=== PATIENT | female | born 1965 | race Caucasian/White ===

== ENCOUNTER 2016-05-17 14:04 | Emergency (ER) | payer MEDICARE ==
[2016-05-17] MEDS ORDERED: ONDANSETRON 4 MG TAB.RAPDIS PO ONE (14:09)
--- NOTE | 2016-05-17 14:11 | ER Document Report ---
ED Medical Screen (RME) - General Stated Complaint: HEADACHE,NAUSEA,VOMITING Mode of Arrival: Ambulatory Information source: Patient Notes: Patient complains of migraine headache. Patient reports right-sided headache pain that started 4 days ago. Patient does report nausea and vomiting. No head injury. No fever. Patient reports, Vicodin and muscle relaxer without relief her symptoms. hx: Lupus, fibromyalgia, migraines I have greeted and performed a rapid initial assessment of this patient. A comprehensive ED assessment and evaluation of the patient, analysis of test results and completion of the medical decision making process will be conducted by additional ED providers. TRAVEL OUTSIDE OF THE [place] IN LAST 30 DAYS: No - Related Data Allergies/Adverse Reactions: diphenhydramine HCl [From Benadryl] Allergy (Severe, Verified 01/25/16 11:48) HEART RACING, RESTLESS LEG metoclopramide HCl [From Reglan] Allergy (Severe, Verified 01/25/16 11:48) HEART RACING, RESTLESS LEG prochlorperazine maleate [From Compazine] Allergy (Severe, Verified 01/25/16 11: 48) HEART RACING, RESTLESS LEG promethazine HCl [From Phenergan] Allergy (Severe, Verified 01/25/16 11:48) HEART RACING RESTLESS LEG Sulfa (Sulfonamide Antibiotics) Allergy (Severe, Verified 01/25/16 11:48) Anaphylaxis doxycycline [Doxycycline] Allergy (Mild, Verified 01/25/16 11:48) upset stomach latex [Latex] Allergy (Mild, Verified 01/25/16 11:48) Pruritis oxycodone HCl [From Percocet] Allergy (Mild, Verified 01/25/16 11:48) upset stomach Past Medical History - Past Medical History Cardiac Medical History: Denies: Hx Heart Attack, Hx Hypertension Pulmonary Medical History: Reports: Hx Bronchitis, Hx Pneumonia Denies: Hx Asthma, Hx COPD Neurological Medical History: Reports: Hx Migraine. Denies: Hx Cerebrovascular Accident, Hx Seizures Malignancy Medical History: Reports: Hx Skin Cancer GI Medical History: Reports: Hx Gastroesophageal Reflux Disease Musculoskeltal Medical History: Reports Hx Arthritis, Reports Hx Fibromyalgia Psychiatric Medical History: Reports: Hx Depression Infectious Medical History: Reports: Hx MRSA Past Surgical History: Reports: Hx Gynecologic Surgery - ablation, Hx Oral Surgery, Hx Orthopedic Surgery - right knee, Hx Tonsillectomy. Denies: Hx Hysterectomy - Immunizations Hx Diphtheria, Pertussis, Tetanus Vaccination: No Physical Exam - Neurological Cognition: Normal [place]yla Coma Scale Eye Opening: Spontaneous [place] Coma Scale Verbal: Oriented Leyla Coma Scale Motor: Obeys Commands Leyla Coma Scale Total: 15
[2016-05-17] MEDS ORDERED: ONDANSETRON HCL 8 MG TABLET PO ONE (14:12)
[2016-05-17 15:01] LABS: PROTHROMBIN TIME 21.7 SEC (11.4-15.4)
[2016-05-17] MEDS ORDERED: NORMAL SALINE 1000 ML 1,000 ML IV ONE (17:48)
[2016-05-17] MEDS ORDERED: KETOROLAC TROMETHAMINE INJ/PF 30 MG/1 ML SDV IV ONE (17:48)
[2016-05-17] MEDS ORDERED: HYDROMORPHONE HCL INJ/PF 2 MG/ML AMPULE IV ONE (17:49)
--- NOTE | 2016-05-17 17:59 | ER Document Report ---
ED Headache - General Chief Complaint: Headache Stated Complaint: HEADACHE,NAUSEA,VOMITING Mode of Arrival: Ambulatory Information source: Patient Notes: This is a 51-year-old female who has a history of migraines lupus and fibromyalgia who presents with a migraine headache. She states that this headache began 4 days ago. The headache is right-sided and throbbing. The headache began just like her typical migraines began. She has been trying medication at home to include Maxalt Vicodin and muscle relaxers but the pain has persisted and intensified today. This was not a thunderclap sudden onset headache. She has had no neck pain or rigidity and no fevers or chills. She has had some nausea and vomited one time yesterday but has not thrown up today. She was last seen in this ER about 7 months ago for a migraine at that time her head CT was negative. She tells me that this migraine is very similar in nature to her previous migraine headaches. TRAVEL OUTSIDE OF THE [place] IN LAST 30 DAYS: No - Related Data Allergies/Adverse Reactions: diphenhydramine HCl [From Benadryl] Allergy (Severe, Verified 01/25/16 11:48) HEART RACING, RESTLESS LEG metoclopramide HCl [From Reglan] Allergy (Severe, Verified 01/25/16 11:48) HEART RACING, RESTLESS LEG prochlorperazine maleate [From Compazine] Allergy (Severe, Verified 01/25/16 11: 48) HEART RACING, RESTLESS LEG promethazine HCl [From Phenergan] Allergy (Severe, Verified 01/25/16 11:48) HEART RACING RESTLESS LEG Sulfa (Sulfonamide Antibiotics) Allergy (Severe, Verified 01/25/16 11:48) Anaphylaxis doxycycline [Doxycycline] Allergy (Mild, Verified 01/25/16 11:48) upset stomach latex [Latex] Allergy (Mild, Verified 01/25/16 11:48) Pruritis oxycodone HCl [From Percocet] Allergy (Mild, Verified 01/25/16 11:48) upset stomach Past Medical History - General Information source: Patient - Social History Smoking Status: Never Smoker Chew tobacco use (# tins/day): No Frequency of alcohol use: None Drug Abuse: None Family History: Arthritis, CAD, Hyperlipidemia, Hypertension, Malignancy. denies: None, Reviewed & Not Pertinent, COPD, CVA, DM, Thyroid Disfunction, Other Patient has suicidal ideation: No Patient has homicidal ideation: No - Past Medical History Cardiac Medical History: Denies: Hx Heart Attack, Hx Hypertension Pulmonary Medical History: Reports: Hx Bronchitis, Hx Pneumonia Denies: Hx Asthma, Hx COPD Neurological Medical History: Reports: Hx Migraine. Denies: Hx Cerebrovascular Accident, Hx Seizures Endocrine Medical History: Reports: Other - fibromyalgia, SLE Renal/ Medical History: Denies: Hx Peritoneal Dialysis Malignancy Medical History: Reports: Hx Skin Cancer GI Medical History: Reports: Hx Gastroesophageal Reflux Disease Musculoskeltal Medical History: Reports Hx Arthritis, Reports Hx Fibromyalgia Psychiatric Medical History: Reports: Hx Depression Infectious Medical History: Reports: Hx MRSA Past Surgical History: Reports: Hx Gynecologic Surgery - ablation, Hx Oral Surgery, Hx Orthopedic Surgery - right knee, Hx Tonsillectomy. Denies: Hx Hysterectomy - Immunizations Hx Diphtheria, Pertussis, Tetanus Vaccination: No Hx Pneumococcal Vaccination: 04/11/10 Review of Systems - Review of Systems Notes: REVIEW OF SYSTEMS: CONSTITUTIONAL : Denies fever, chills, or sweats. Denies recent illness. EENT: Denies eye, ear, throat, or mouth pain or symptoms. Denies nasal or sinus congestion. CARDIOVASCULAR: Denies chest pain. RESPIRATORY: Denies cough, cold, or chest congestion. Denies shortness of breath, difficulty breathing, or wheezing. GASTROINTESTINAL: Denies abdominal pain. Nausea vomiting as per history of present illness GENITOURINARY: Denies difficulty urinating, painful urination, burning, frequency, or blood in urine. MUSCULOSKELETAL: Denies neck or back pain or joint pain or swelling. SKIN: Denies rash or skin lesions. HEMATOLOGIC : Denies easy bruising or bleeding. LYMPHATIC: Denies swollen, enlarged glands. NEUROLOGICAL: As per history of present illness. She denies paresthesias, weakness, imbalance, vision disturbance. PSYCHIATRIC: Denies anxiety or stress or depression. ALL OTHER SYSTEMS REVIEWED AND NEGATIVE. Physical Exam - Vital signs Vitals: Temp Pulse Resp BP Pulse Ox 97.7 F 74 20 107/53 L 100 05/17/16 14:09 05/17/16 14:09 05/17/16 14:09 05/17/16 14:09 05/17/16 14:09 - Notes Notes: PHYSICAL EXAMINATION: GENERAL: Well-appearing, well-nourished and in no acute distress. She does have sunglasses on and appears mildly uncomfortable secondary to headache. She is pleasant and conversant. HEAD: Atraumatic, normocephalic. EYES: Pupils equal round and reactive to light, extraocular movements intact, sclera anicteric, conjunctiva are normal. ENT: nares patent, oropharynx clear without exudates. Moist mucous membranes. NECK: Normal range of motion, supple without lymphadenopathy LUNGS: Breath sounds clear to auscultation bilaterally and equal. No wheezes rales or rhonchi. HEART: Regular rate and rhythm without murmurs ABDOMEN: Soft, nontender, normoactive bowel sounds. No guarding, no rebound. No masses appreciated. EXTREMITIES: Normal range of motion, no pitting or edema. No cyanosis. NEUROLOGICAL: Cranial nerves grossly intact. Normal speech. Normal sensory, motor, and reflex exams. PSYCH: Normal mood, normal affect. SKIN: Warm, Dry, normal turgor, no rashes or lesions noted. Course - Re-evaluation Re-evalutation: 05/17/16 17:55 This patient has a presentation that is very typical of her previous migraines. She did have a CT within the year which was negative. At this time I do not feel her symptoms are consistent with [employer] infection or subarachnoid hemorrhage or [employer] mass lesion. At this time we will defer repeat head CT and treat with IV fluids and IV migraine medication. Unfortunately she is allergic to many medications such as Benadryl, Reglan, Compazine. 05/17/16 19:59 Patient states she has had relief with the IM medications. Her pain is down to a 3. She is still uncomfortable with pain but is to a point where she could rest in her own bed in a dark room. She is agreeable with discharge home her neurologic exam remains normal. She will follow up with her primary care physician and in the interim she will return to the emergency department should she develop any worsening symptoms such as fevers, neck pain, uncontrolled vomiting, weakness or numbness, or any worsening symptoms or concerns. This plan was discussed with her friend who brought her here to the emergency department as well and she assures me that the patient will have someone with her and will be able to return for any worsening symptoms if needed. - Vital Signs Vital signs: Temp Pulse Resp BP Pulse Ox 97.7 F 74 20 107/53 L 100 05/17/16 14:09 05/17/16 14:09 05/17/16 14:09 05/17/16 14:09 05/17/16 14:09 - Laboratory Laboratory results interpreted by me: 05/17/16 14:20 PT 21.7 H Discharge - Discharge Clinical Impression: Migraine headache Qualifiers: Migraine type: unspecified Status migrainosus presence: without status migrainosus Intractability: not intractable Qualified Code(s): G43.909 - Migraine, unspecified, not intractable, without status migrainosus Condition: Stable Disposition: HOME, SELF-CARE Additional Instructions: Migraine Headache The physician feels that your symptoms are due to a migraine attack. Migraines are caused by changes in the blood vessels of the head. Arteries go into spasm, often causing warning symptoms that a headache may begin soon. As the spasm goes away, the vessels dilate and throb, causing the pounding pain of a migraine headache. Migraines often cause nausea and vomiting. The treatment of headaches varies with severity and cause of pain. Not all headaches need pain shots -- in fact, there is evidence that using narcotics for headaches may make them worse in the long run. The physician will determine the therapy that's in your best interest for this particular headache. Medications are available that may prevent migraines, or stop them as they first occur. If one medication is not helpful, try another. If migraines are frequent, be patient -- follow the doctor's recommendations. Call the physician if you are worsening, or if new symptoms arise. HEADACHE: The physician does not feel that the headache you are experiencing has a serious underlying cause. Most headaches are due to emotional stress, with resultant muscle tension (tension headache). Occasionally, headaches are secondary to changes in the blood vessels of the scalp (vascular headache and migraine headache). Sometimes, a headache is the first symptom of another developing illness, such as a viral infection. You have no evidence of stroke, bleeding, meningitis, or other serious cause of your headache. The treatment of headaches varies with the severity and cause of the pain. Not all headaches need pain shots. In fact, there is evidence that using narcotics for headaches may make them worse in the long run. The physician will determine the therapy that's in your best interest. If you develop a fever, if the headache is different from any you've previously experienced, or if the headache progressively worsens, then call your physician at once or go to the emergency room. [place] MEDICATION: You have been given a medication to suppress nausea and vomiting. This type of medication can be given as a shot, pill, or suppository. It will usually last for many hours. Pills and shots usually last six to eight hours, suppositories last about 12 hours. For the typical illness, only one or two doses of the medication may be necessary. Mild lightheadedness may occur. This type of medicine can cause drowsiness. Do not drive or operate dangerous machinery while under its influence. Do not mix with alcohol. See your doctor at once if you have muscle spasms or tightness, or uncontrollable motions (particularly of the neck, mouth, or jaw). Persistent vomiting or severe lightheadedness should also be evaluated by the physician. TORADOL INJECTION: You have been given an injection of ketorolac tromethamine (Toradol). This is an excellent, safe drug for pain control. It also has potent antiinflammatory action. You should have significant pain relief within about one hour. Toradol is not addicting and is non-sedating. It does not interfere with driving or work. Call or return if you develop itching, hives, shortness of breath, or rash. PAIN MEDICATION INJECTION: You have received an injection of a pain medication. You should experience significant pain relief within 45 minutes. This drug is a narcotic - - it will impair your judgement, slow your reaction time and make you sleepy ( as well as relieve your pain). Narcotics also can cause nausea. You should not drive, work with machinery, or perform any task requiring mental alertness until all effects of the medication are gone -- six to eight hours. Do not take any alcohol, or sedatives, and do not take any other medication without checking with your physician. FOLLOW-UP CARE: If you have been referred to a physician for follow-up care, call the physician s office for an appointment as you were instructed or within the next two days. If you experience worsening or a significant change in your symptoms, notify the physician immediately or return to the Emergency Department at any time for re-evaluation.
[2016-05-17] MEDS ORDERED: HYDROMORPHONE HCL INJ/PF 2 MG/ML AMPULE IM ONE (18:33)
[2016-05-17] MEDS ORDERED: KETOROLAC TROMETHAMINE 60 MG/2 ML SDV IM ONE (18:33)
[2016-05-17] MEDS ORDERED: CYCLOBENZAPRINE HCL 10 MG TABLET PO ONE (19:54)
[2016-05-17 20:49] VITALS: BP 108/51
== END 2016-05-17 20:40 | disposition home or self-care (01) ==
LOC: ER 14:04
DX: G43.909 Migraine, unspecified, not intractable, without status migrainosus (principal); M32.9 Systemic lupus erythematosus, unspecified; Z88.8 Allergy status to other drugs, medicaments and biological substances; Z91.040 Latex allergy status; Z88.5 Allergy status to narcotic agent; Z88.1 Allergy status to other antibiotic agents; Z87.892 Personal history of anaphylaxis; Z88.2 Allergy status to sulfonamides; Z86.14 Personal history of Methicillin resistant Staphylococcus aureus infection; Z85.828 Personal history of other malignant neoplasm of skin
CPT/HCPCS: 99284; 96372; 36415; 85610; A9270 ×2; J1885; J1170; S0119

== ENCOUNTER → 2016-06-23 | Outpatient (CLI) | payer MEDICARE, OTHER | LOC: SP 16:05 | PROVIDERS: ATTEND Internal Medicine Medical Oncology | DX: M79.662 Pain in left lower leg (principal) | CPT/HCPCS: 93971 ==

== ENCOUNTER → 2016-07-15 | Outpatient (CLI) | payer MEDICARE | LOC: SP 10:08 | PROVIDERS: ATTEND Internal Medicine Medical Oncology | DX: M79.605 Pain in left leg (principal) | CPT/HCPCS: 93971 ==

== ENCOUNTER → 2017-01-18 | Outpatient (CLI) | payer MEDICARE ==
--- NOTE | 2017-01-18 19:07 | WOMENS IMAGING REPORT ---
EXAM DESCRIPTION: 3D SCREENING MAMMO BILAT COMPLETED DATE/TIME: 01/18/2017 8:29 am REASON FOR STUDY: ROUTINE SCREENING; Z12.31 Z12.31 ENCNTR SCREEN MAMMOGRAM FOR MALIGNANT NEOPLASM O F MONSERRAT COMPARISON: Multiple since 2010 TECHNIQUE: Standard craniocaudal and mediolateral oblique views of each breast recorded using digita l acquisition and breast tomosynthesis. LIMITATIONS: None. FINDINGS: Findings present which are benign by mammographic criteria. No suspicious masses, calcifi cations or architectural distortion. Pertinent benign findings: Stable bilateral breast and skin calcifications Read with the assistance of CAD. .[facility] - R2 Cenova Version 1.3 .[facility] - R2 Cenova Version 1.3 .[facility] - R2 Cenova Version 2.4 .[facility] [place] - R2 Cenova Version 2.4 .[facility] - R2 Manager Pulmonary Version 9.2 Benign mammographic findings may include one or more of the following: Smooth masses, popcorn/rim/co arse calcifications, asymmetries, post-procedure changes, and lesions with long-standing stability. IMPRESSION: BENIGN MAMMOGRAPHIC FINDINGS. BIRADS 2 BREAST DENSITY: d. The breasts are extremely dense, which lowers the sensitivity of mammography. BIRAD: 2 BENIGN FINDING(S) RECOMMENDATION: RECOMMENDATION: ROUTINE SCREENING Please continue yearly bilateral screening tomosynthesis in January 2018 COMMENT: The patient has been notified of the results by letter per [place] requirements. Additional no tification policies are in place for contacting patient with suspicious or incomplete findings. Quality ID #[id number]: The [employer] recommends an annual screening mammogram for women aged 40 years or over. This facility utilizes a reminder system to ensure that all patients receive reminder letters, and/or direct phone calls for appointments. This includes reminders for routine scr eening mammograms, diagnostic mammograms, or other Breast Imaging Interventions when appropriate. Th is patient will be placed in the appropriate reminder system. The [employer] (ACR) has developed recommendations for screening MRI of the breast s in certain patient populations, to be used in conjunction with mammography. Breast MRI surveillanc e may be appropriate for women with more than 20% lifetime risk of developing breast cancer as deter mined by genetic testing, significant family history of the disease, or history of mantle radiation f or Hodgkins Disease. ACR Practice Guidelines 2008. DBT Technology DBT is a type of tomographic mammography. With conventional mammography, overlapping breast tissue ma y make lesions difficult to detect, even with good compression. DBT uses an x-ray tube that rotates a round the breast, taking images at different angles. These images are then combined to create thin sl ices of the breast that the radiologist can view as a 3D reconstruction. The [employer] unit can perform full-field digital mammograms (2D imaging); or DBT (3D imaging); or both, in a combination mode that quickly performs both the mammogram and the tomosynthesis scan while the breast is still compressed. PQRS 6045F: Fluoroscopic imaging is not utilized for breast tomosynthesis. TECHNICAL DOCUMENTATION: FINDING NUMBER: (1) ASSESSMENT: (1) JOB ID: [id number] [employer]- All Rights Reserved
== END ==
LOC: WI 08:07
PROVIDERS: ATTEND Physician Assistant
DX: Z12.31 Encounter for screening mammogram for malignant neoplasm of breast (principal)
CPT/HCPCS: 77063; G0202; 77067

== ENCOUNTER 2017-02-25 08:18 | Day surgery (SDC) | payer MEDICARE ==
[~2017-02-25 08:18] MED LIST: LACTATED RINGERS 1000 ML IV PRN; LIDOCAINE 0.5% INJ-PF (5 MG/ML) 50 ML SDV SUBCUT PRN
[2017-02-25 08:57] LABS: PARTIAL THROMBOPLASTIN TIME 60.1 SEC (23.5-35.8)
[2017-02-25] MEDS ORDERED: MIDAZOLAM 2 MG/2 ML INJ ONE (10:43)
[2017-02-25] MEDS ORDERED: PROPOFOL INJ 200 MG/20 ML VIAL IV ONE (10:44)
[2017-02-25] MEDS ORDERED: FENTANYL CITRATE INJ/PF 100 MCG/2 ML AMPUL IV PRN ×2 (11:08)
--- NOTE | 2017-02-25 12:29 | Operative Report ---
Operative Report DATE OF SURGERY: 02/25/17 Operative Report: The risks, benefits and alternatives of the procedure including risks of bleeding, perforation requiring surgery are explained to the patient in detail and informed consent was obtained. Patient was taken back to the operating room and placed in the left, lateral decubital position. Timeout was called. Propofol medications administered. A rectal examination is done which did not reveal any masses, tears or fissures. An Olympus videoscope was inserted into the patient's rectum. The scope was then carefully advanced all the way to the cecum. Cecum was identified by the usual anatomical landmarks including the ileocecal valve as well as the appendiceal office. Photodocumentation was obtained. Patient has a very redundant colon with unusual anatomy around the area of the splenic flexure. Prep is good. The scope was then sequentially pulled back out via the various segments of the colon including the ascending colon, hepatic flexure, transverse colon, splenic flexure, descending colon finding to the rectosigmoid portions of the colon. Retroflexion maneuvers performed. PREOPERATIVE DIAGNOSIS: Change in bowel habits POSTOPERATIVE DIAGNOSIS: Normal screening colonoscopy, internal hemorrhoids OPERATION: Diagnostic colonoscopy SURGEON: DULCE SALAS ANESTHESIA: LMAC TISSUE REMOVED OR ALTERED: None. COMPLICATIONS: None. ESTIMATED BLOOD LOSS: None. INTRAOPERATIVE FINDINGS: As noted above. PROCEDURE: Patient tolerated procedure well. No immediate postprocedure complications are noted. Patient discharged in good condition. Discharge date 02/25/2017. Discharge diet: Regular. Discharge activity: Regular. 2-3 week follow-up to discuss findings. Patient is instructed to call the office or proceed to the emergency room should there be any further problems or questions. Surveillance colonoscopy in 5 years
[2017-02-25 13:43] VITALS: BP 114/66
== END 2017-02-25 13:20 | disposition home or self-care (01) ==
LOC: END 08:18
PROVIDERS: ATTEND Internal Medicine Gastroenterology
PROC: 0DJD8ZZ Inspection of Lower Intestinal Tract, Via Natural or Artificial Opening Endoscopic (ICD-10-PCS; principal; 2017-02-25 10:00)
DX: K64.8 Other hemorrhoids (principal); R19.4 Change in bowel habit; M79.7 Fibromyalgia; M32.9 Systemic lupus erythematosus, unspecified; D68.61 Antiphospholipid syndrome; Z91.040 Latex allergy status; Z79.01 Long term (current) use of anticoagulants; Z88.2 Allergy status to sulfonamides; Z85.828 Personal history of other malignant neoplasm of skin
CPT/HCPCS: 45378; 36415; 84703; 85610; 85730; J2250; J2704; 810

== ENCOUNTER 2017-09-27 15:53 | Emergency (ER) | payer MEDICARE ==
[2017-09-27] MEDS ORDERED: ONDANSETRON HCL INJ/PF 4 MG/2 ML SDV IV ONE (19:51)
[2017-09-27] MEDS ORDERED: NORMAL SALINE 500 ML IV ONE (19:52)
[2017-09-27] MEDS ORDERED: ONDANSETRON 4 MG TAB.RAPDIS PO ONE (19:54)
[2017-09-27] MEDS ORDERED: FENTANYL CITRATE INJ/PF 100 MCG/2 ML AMPUL IV ONE (19:59)
[2017-09-27] MEDS ORDERED: HALOPERIDOL LACTATE INJ 5 MG/1 ML VIAL IV ONE (20:03)
--- NOTE | 2017-09-27 20:06 | ER Document Report ---
ED General - General Chief Complaint: Headache Stated Complaint: HEADACHE,VOMITING,FACIAL PAIN Time Seen by Provider: 09/27/17 19:48 TRAVEL OUTSIDE OF THE [place] IN LAST 30 DAYS: No - HPI Notes: Patient is a 52-year-old female with a history of lupus, fiber myalgia, and chronic migraines who presents to the ED complaining of another migraine exacerbation 2 days. Patient states that her home medicines have not been working for her very well which brought her to the emergency department. Patient states that she has associated light sensitivity, left-sided headache, nausea and vomiting. Patient states that her symptoms are very typical of previous migraines and has no new developments with this headache. Pain does not radiate. Patient has not been able to eat or drink due to the nausea and vomiting. She is still urinating and having normal bowel movements otherwise. No other recent illness or injury. Denies any fever, head injury, neck pain, changes in vision/speech/mentation/hearing, URI, sore throat, chest pain, palpitations, syncope, cough, shortness of breath, wheeze, dyspnea, abdominal pain, nausea/vomiting/diarrhea, urinary retention, dysuria, hematuria, loss of control of bowel or bladder, numbness/tingling, saddle anesthesia, muscle paralysis/weakness, or rash. - Related Data Allergies/Adverse Reactions: diphenhydramine HCl [From Benadryl] Allergy (Severe, Verified 02/25/17 08:57) HEART RACING, RESTLESS LEG metoclopramide HCl [From Reglan] Allergy (Severe, Verified 02/25/17 08:57) HEART RACING, RESTLESS LEG prochlorperazine maleate [From Compazine] Allergy (Severe, Verified 02/25/17 08: 57) HEART RACING, RESTLESS LEG promethazine HCl [From Phenergan] Allergy (Severe, Verified 02/25/17 08:57) HEART RACING RESTLESS LEG Sulfa (Sulfonamide Antibiotics) Allergy (Severe, Verified 02/25/17 08:57) Anaphylaxis doxycycline [Doxycycline] Allergy (Mild, Verified 02/25/17 08:57) upset stomach latex [Latex] Allergy (Mild, Verified 02/25/17 08:57) Pruritis oxycodone HCl [From Percocet] Allergy (Mild, Verified 02/25/17 08:57) upset stomach cefdinir [From Omnicef] Allergy (Verified 02/25/17 08:57) Past Medical History - Social History Smoking Status: Unknown if Ever Smoked Family History: Arthritis, CAD, Hyperlipidemia, Hypertension, Malignancy. denies: None, Reviewed & Not Pertinent, COPD, CVA, DM, Thyroid Disfunction, Other Patient has suicidal ideation: No Patient has homicidal ideation: No - Past Medical History Cardiac Medical History: Denies: Hx Coronary Artery Disease, Hx Heart Attack, Hx Hypertension Pulmonary Medical History: Reports: Hx Bronchitis, Hx Pneumonia Denies: Hx Asthma, Hx COPD Neurological Medical History: Reports: Hx Migraine. Denies: Hx Cerebrovascular Accident, Hx Seizures Renal/ Medical History: Denies: Hx Peritoneal Dialysis Malignancy Medical History: Reports: Hx Skin Cancer GI Medical History: Reports: Hx Gastroesophageal Reflux Disease Musculoskeltal Medical History: Denies Hx Arthritis, Reports Hx Fibromyalgia Psychiatric Medical History: Reports: Hx Depression Infectious Medical History: Reports: Hx MRSA Past Surgical History: Reports: Hx Gynecologic Surgery - ablation, Hx Oral Surgery, Hx Orthopedic Surgery - right knee, Hx Tonsillectomy. Denies: Hx Hysterectomy - Immunizations Hx Diphtheria, Pertussis, Tetanus Vaccination: Yes Hx Pneumococcal Vaccination: 01/09/17 Review of Systems - Review of Systems -: Yes All other systems reviewed and negative Physical Exam - Vital signs Vitals: Temp Pulse Resp BP Pulse Ox 98.0 F 71 20 111/50 L 100 09/27/17 16:13 09/27/17 16:13 09/27/17 16:13 09/27/17 16:13 09/27/17 16:13 - Notes Notes: PHYSICAL EXAMINATION: GENERAL: Well-appearing, well-nourished and in no acute distress. A&Ox4. Answers questions appropriately. HEAD: Atraumatic, normocephalic. Non-tender. No telles sign EYES: Pupils equal round and reactive to light, extraocular movements intact, sclera anicteric, conjunctiva are normal. No raccoon eyes/entrapment. No nystagmus. ENT: EAC clear b/l. TM's intact b/l without erythema, fluid, or perforation. Nares patent and without discharge. oropharynx clear without exudates. No tonsilar hypertrophy or erythema. Moist mucous membranes. No sinus tenderness. NECK: Normal range of motion, supple without lymphadenopathy. No rigidity. No midline tenderness. LUNGS: Breath sounds clear to auscultation bilaterally and equal. No wheezes rales or rhonchi. HEART: Regular rate and rhythm without murmurs, rubs, gallops. ABDOMEN: Soft, nontender, nondistended abdomen. No guarding, no rebound. No masses appreciated. Normal bowel sounds present. No CVA tenderness bilaterally. Extremities: No cyanosis, clubbing, or edema b/l. Peripheral pulses 2+. Capillary refill less than 2 seconds. NEUROLOGICAL: NIH 0. GCS 15. Cranial nerves grossly intact. Normal speech. Normal sensory, motor exams. Reflexes 2+ b/l. PSYCH: Normal mood, normal affect. SKIN: Warm, Dry, normal turgor, no rashes or lesions noted. Course - Re-evaluation Re-evalutation: 09/27/17 21:43 Patient is an afebrile, well-hydrated, 52-year-old female who presents to the ED with a headache, suspect 1 of her typical migraines. Vitals are acceptable. PE is otherwise unremarkable for any focal neurological deficits. Patient was given p.o. and IM medications which resolved her headache. She has no significant tachycardia, tachypnea, or hypoxia. She is now tolerating p.o. without difficulties and is nontoxic-appearing. Patient states that she is feeling much better and would like to go home. No other labs or imaging warranted at this time based on H&P. Low suspicion for any acute glaucoma, temporal arteritis, meningitis, intracranial hemorrhage, ischemic stroke, or fracture at this time. Patient is aware that her condition can change from initial presentation and that she needs to monitor symptoms closely for any acute changes. Conservative measures for symptoms. Continue home medications. Recheck with your PCM in 3-5 days. Return to the ED with any worsening/ concerning symptoms otherwise as reviewed in discharge. Patient is in agreement. - Vital Signs Vital signs: Temp Pulse Resp BP Pulse Ox 97.7 F 63 18 95/49 L 99 09/27/17 19:44 09/27/17 19:44 09/27/17 21:01 09/27/17 21:01 09/27/17 21:01 Discharge - Discharge Clinical Impression: Headache Qualifiers: Headache type: unspecified Headache chronicity pattern: acute headache Intractability: not intractable Qualified Code(s): R51 - Headache Condition: Stable Disposition: HOME, SELF-CARE Instructions: Headache ([facility]) Additional Instructions: Rest, Ice/cool compress Tylenol/ibuprofen as needed Light stretches daily Strength exercises as able Moist heat and massage may help F/u with your PCP in 3-5 days for a recheck Consider consult(s) with Neurology for ongoing/worsening symptoms Return to the ED with any worsening symptoms and/or development of fever, headache, changes in behavior/mentation/vision/speech, chest pain, palpitations , syncope, shortness of breath, trouble breathing, abdominal pain, n/v/d, blood in stool/urine, loss of control of bowel/bladder, urinary retention, muscle weakness/paralysis, saddle anesthesia, numbness/tingling, or other worsening symptoms that are concerning to you. Referrals: RISHABH GREWAL PA-C [Primary Care Provider] - Follow up in 3-5 days
[2017-09-27] MEDS ORDERED: HALOPERIDOL LACTATE INJ 5 MG/1 ML VIAL IM ONE (20:15)
[2017-09-27 21:52] VITALS: BP 106/84
[2017-09-27] MEDS ORDERED: HYDROCODONE/ACETAMINOPHEN 7.5-325 MG TABLET PO ONE (21:57)
== END 2017-09-27 22:16 | disposition home or self-care (01) ==
LOC: ER 15:53
DX: R51 Headache (principal); R11.10 Vomiting, unspecified; Z86.14 Personal history of Methicillin resistant Staphylococcus aureus infection; Z88.2 Allergy status to sulfonamides; Z91.040 Latex allergy status
CPT/HCPCS: 99284; 96361; 96374; 96375; J3010; J1630; J7040; A9270

== ENCOUNTER 2018-02-14 23:57 | Inpatient (IN) | payer MEDICARE ==
[2018-02-15] MEDS ORDERED: OXYMETAZOLINE HCL 0.05% NASAL SPRAY 15 ML BOTTLE NASL ONE ×2 (00:21→02:44)
[2018-02-15] MEDS ORDERED: LIDOCAINE 2% INJ (20 MG/ML) 20 ML MDV INJ ONE (00:21)
[2018-02-15] MEDS ORDERED: TRANEXAMIC ACID INJ/PF 1,000 MG/10 ML SDV IV ONE (00:37)
--- NOTE | 2018-02-15 00:57 | ER Document Report ---
ED General - General Chief Complaint: Nose Bleed Stated Complaint: BLOODY NOSE Time Seen by Provider: 02/15/18 00:19 Notes: 53-year-old female with a history of complicated sinuses status post multiple sinus surgeries and with a known septal defect, also on Coumadin for antiphospholipid antibody syndrome, presents with nosebleed for 12 hours onset slow and then worsening throughout the day both nostrils at the same time. She had packing in until 3 days ago which she removed at home with no events, but has been taking antibiotics which she is afraid are interacting with her Coumadin. She sees an ENT doctor in [facility]. TRAVEL OUTSIDE OF THE [place] IN LAST 30 DAYS: No - Related Data Allergies/Adverse Reactions: diphenhydramine HCl [From Benadryl] Allergy (Severe, Verified 02/25/17 08:57) HEART RACING, RESTLESS LEG metoclopramide HCl [From Reglan] Allergy (Severe, Verified 02/25/17 08:57) HEART RACING, RESTLESS LEG prochlorperazine maleate [From Compazine] Allergy (Severe, Verified 02/25/17 08: 57) HEART RACING, RESTLESS LEG promethazine HCl [From Phenergan] Allergy (Severe, Verified 02/25/17 08:57) HEART RACING RESTLESS LEG Sulfa (Sulfonamide Antibiotics) Allergy (Severe, Verified 02/25/17 08:57) Anaphylaxis doxycycline [Doxycycline] Allergy (Mild, Verified 02/25/17 08:57) upset stomach latex [Latex] Allergy (Mild, Verified 02/25/17 08:57) Pruritis oxycodone HCl [From Percocet] Allergy (Mild, Verified 02/25/17 08:57) upset stomach cefdinir [From Omnicef] Allergy (Verified 02/25/17 08:57) Past Medical History - Social History Smoking Status: Never Smoker Family History: Arthritis, CAD, Hyperlipidemia, Hypertension, Malignancy. denies: None, Reviewed & Not Pertinent, COPD, CVA, DM, Thyroid Disfunction, Other - Past Medical History Cardiac Medical History: Denies: Hx Coronary Artery Disease, Hx Heart Attack, Hx Hypertension Pulmonary Medical History: Reports: Hx Bronchitis, Hx Pneumonia Denies: Hx Asthma, Hx COPD Neurological Medical History: Reports: Hx Migraine. Denies: Hx Cerebrovascular Accident, Hx Seizures Renal/ Medical History: Denies: Hx Peritoneal Dialysis Malignancy Medical History: Reports: Hx Skin Cancer GI Medical History: Reports: Hx Gastroesophageal Reflux Disease Musculoskeletal Medical History: Denies Hx Arthritis, Reports Hx Fibromyalgia Psychiatric Medical History: Reports: Hx Depression Infectious Medical History: Reports: Hx MRSA Past Surgical History: Reports: Hx Gynecologic Surgery - ablation, Hx Oral Surgery, Hx Orthopedic Surgery - right knee, Hx Tonsillectomy. Denies: Hx Hysterectomy - Immunizations Hx Diphtheria, Pertussis, Tetanus Vaccination: Yes Hx Pneumococcal Vaccination: 01/09/17 Review of Systems - Review of Systems Notes: REVIEW OF SYSTEMS GEN: Denies fever, chills, weight loss ENT: Denies sore throat, nasal discharge, ear pain EYES: No spleen CV: Denies chest pain, palpitations, edema RESP: Denies cough, shortness of breath, wheezing GI: Denies abdominal pain, nausea, vomiting, diarrhea MSK: Denies joint pain/swelling, edema, SKIN: Denies rash, skin lesions LYMPH: Denies swollen glands/lymph nodes NEURO: Denies headache, focal weakness or numbness, dizziness PSYCH: Denies depression, suicidal or homicidal ideation PHYSICAL EXAMINATION General: No acute distress, well-nourished Head: Atraumatic, normocephalic ENT: Mouth normal, oropharynx moist, bloody oozing from both nares, down the back of the throat as well, with no obvious source in the anterior septum on either side. Cannot visualize septal defect or turbinates. Eyes: Conjunctiva normal, pupils equal, lids normal Neck: No JVD, supple, no guarding CVS: Normal rate, regular rhythm, no murmurs Resp: No resp distress, equal and normal breath sounds bilaterally GI: Nondistended, soft, no tenderness to palpation, no rebound or guarding Ext: No deformities, no edema, normal range of motion in upper and lower ext Back: No CVA or midline TTP Skin: No rash, warm Lymphatic: No lymphadeopathy noted Neuro: Awake, alert. Face symmetric. GCS 15. Physical Exam - Vital signs Vitals: Temp Pulse Resp BP Pulse Ox 97.7 F 70 16 113/69 100 02/15/18 00:13 02/15/18 00:13 02/15/18 00:13 02/15/18 00:13 02/15/18 00:13 Course - Re-evaluation Re-evalutation: 02/15/18 00:57 , Located sinus patient on Coumadin with bilateral nosebleeds. Will need posterior packing possibly bilaterally, will check INR. 02/15/18 02:04 Labs show no anemia, and an INR of 1.95. Patient was reassessed and she has suctioned about 100 cc of blood from her nose and mouth in the interim. Please see procedure noteI attempted to pack her nasal cavity but due to her abnormal anatomy was unable to advance either an anterior or posterior Rhino Rocket beyond about 2 cm. I subsequently placed a Merocel on both sides. I discussed the case with ENT compression molding machine tender Dr. Domínguez who will come to the ED and evaluate the patient. 02/15/18 03:17 Seen and packed by ENT. Patient is comfortable. Will be discharged with antibiotics and Afrin. We will up with her ENT and consent. I have discussed with the patient there likely diagnosis, aftercare plan, follow-up plans and my usual and customary return precautions. They verbalized understanding of this. - Vital Signs Vital signs: Temp Pulse Resp BP Pulse Ox 97.7 F 70 16 111/70 100 02/15/18 00:13 02/15/18 00:13 02/15/18 02:01 02/15/18 02:01 02/15/18 02:01 - Laboratory Result Diagrams: 02/15/18 00:58 02/15/18 00:58 Laboratory results interpreted by me: 02/15/18 02/15/18 02/15/18 00:58 00:58 00:58 RBC 3.55 L Hgb 11.4 L Hct 33.4 L Plt Count 134 L PT 23.3 H Chloride 108 H - Diagnostic Test Radiology reviewed: Pending, Image reviewed Procedures - Nosebleed Procedure Bilateral Time completed: 01:45 Location: Anterior Supplies used: Nasal tampon, Rhinorocket Notes: Difficult placement. Rhino Rocket were advanced and retracted because they were obstructed. We are cells were inserted. Anesthesia was 2% lidocaine with Afrin. Soaked in tranexamic acid. Discharge - Discharge Clinical Impression: Epistaxis Condition: Good Disposition: HOME, SELF-CARE Instructions: Nosebleed Instructions ([facility]) Additional Instructions: Follow-up with your ENT doctor in [place] Prescriptions: Oxymetazoline HCl [Afrin] 20 ml NS Q8HP PRN #30 drops PRN Reason: Cephalexin Monohydrate [Keflex 500 mg Capsule] 500 mg PO Q6H 5 Days capsule Referrals: RISHABH GREWAL PA-C [Primary Care Provider] - Follow up as needed
[2018-02-15 01:13] LABS: ABSOLUTE BASOPHILS # (AUTO) 0.1 10^3/uL (0.0-0.2); ABSOLUTE EOSINOPHILS # (AUTO) 0.2 10^3/uL (0.0-0.6); ABSOLUTE LYMPHOCYTES (AUTO) 2.1 10^3/uL (0.5-4.7); ABSOLUTE MONOCYTES (AUTO) 0.6 10^3/uL (0.1-1.4); ABSOLUTE NEUT (AUTO) 2.9 10^3/uL (1.7-8.2); BASOPHILS % (AUTO) 1.2 % (0-2); EOSINOPHILS % (AUTO) 3.7 % (0-6); HEMATOCRIT 33.4 % (36.0-47.0); HEMOGLOBIN 11.4 g/dL (12.0-15.5); LYMPHOCYTES % (AUTO) 36.2 % (13-45); MEAN CORPUSCULAR HEMOGLOBIN 32.2 pg (27.0-33.4); MEAN CORPUSCULAR HGB CONC 34.3 g/dL (32.0-36.0); MEAN CORPUSCULAR VOLUME 94 fl (80-97); MONOCYTES % (AUTO) 9.5 % (3-13); PLATELET COUNT 134 10^3/uL (150-450); RED BLOOD COUNT 3.55 10^6/uL (3.72-5.28); RED CELL DISTRIBUTION WIDTH 13.2 % (11.5-14.0); SEGMENTED NEUTROPHILS % (AUTO) 49.4 % (42-78); TOTAL CELLS COUNTED % (AUTO) 100 %; WHITE BLOOD COUNT 5.8 10^3/uL (4.0-10.5)
[2018-02-15 01:18] LABS: INTERNATIONAL RATION (INR) 1.96; PROTHROMBIN TIME 23.3 SEC (11.4-15.4)
[2018-02-15 01:28] LABS: ANION GAP 10 (5-19); BLOOD UREA NITROGEN 17 mg/dL (7-20); CALCIUM 9.6 mg/dL (8.4-10.2); CARBON DIOXIDE 26 mmol/L (22-30); CHLORIDE 108 mmol/L (98-107); GLUCOSE 94 mg/dL (75-110); POTASSIUM 4.3 mmol/L (3.6-5.0)
[2018-02-15] MEDS ORDERED: COCAINE HCL 4% TOPICAL SOLN 4 ML TP ONE (02:41)
[2018-02-15] MEDS ORDERED: FENTANYL CITRATE INJ/PF 100 MCG/2 ML AMPUL IV ONE (02:59)
[2018-02-15] MEDS ORDERED: MORPHINE SULFATE IR 15 MG TABLET PO ONE (03:23)
[2018-02-15] MEDS ORDERED: MAG HYDROX/AL HYDROX/SIMETH SUSP 30 ML UDCUP PO PRN (04:09)
[2018-02-15] MEDS ORDERED: IPRATROPIUM/ALBUTEROL 0.5-2.5 MG/3 ML AMPUL NEB PRN (04:09)
--- NOTE | 2018-02-15 05:44 | PDOC H&P ---
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 Patient presents with 12 hours of slow and progressive bleeding from both nostrils. Patient had packing until 3 days ago following sinus surgery with button removal. She denies fever chills nausea or vomiting. Emergency room provider is unsuccessful with Rhino Rocket and Afrin. ENT Dr. Rodriguez is consulted for persistent posterior oropharynx bleeding. She is referred to the hospitalist for admission. Patient denies recent change in medications. Past Medical History Cardiac Medical History: Denies: Coronary Artery Disease, Myocardial Infarction, Hypertension Pulmonary Medical History: Reports: Bronchitis, Pneumonia Denies: Asthma, Chronic Obstructive Pulmonary Disease (COPD) Neurological Medical History: Reports: Migraine Denies: Seizures Malignancy Medical History: Reports: Skin Cancer GI Medical History: Reports: Gastroesophageal Reflux Disease Musculoskeltal Medical History: Reports: Fibromyalgia Denies: Arthritis Psychiatric Medical History: Reports: Depression Hematology: Denies: Anemia Infectious Medical History: Reports: Methicillin-Resistant Staph Aureus Past Surgical History Past Surgical History: Reports: Orthopedic Surgery - right knee, Tonsillectomy Denies: Hysterectomy Social History Information Source: Patient, Emergency [facility], [facility], 1928–1983 Records Smoking Status: Never Smoker Frequency of Alcohol Use: None Drugs: None - Advance Directive Resuscitation Status: Full Code Family History Family History: Arthritis, CAD, Hyperlipidemia, Hypertension, Malignancy. denies: None, Reviewed & Not Pertinent, COPD, CVA, DM, Thyroid Disfunction, Other Parental Family History Reviewed: Yes Children Family History Reviewed: Yes Sibling(s) Family History Reviewed.: Yes Medication/Allergy Home Medications: Calcium Carb/Vit D3/Minerals [Calcium 1,200 Mg Tablet Chew] 1 each PO DAILY 05/04 Cyclobenzaprine HCl [Flexeril 10 Mg Tablet] 10 mg PO PRN PRN 07/05/11 Esomeprazole Mag Trihydrate [Nexium] 20 mg PO DAILY 07/05/11 Fluticasone Propionate [Flonase Nasal Center 50 Mcg/Center] 1 spray NASL BID PRN 07/05/11 Hydroxychloroquine Sulfate [Plaquenil 200 Mg Tablet] 200 mg PO DAILY 07/05/11 Multivits W-Ca,Fe,Other Min [Multiple Vitamins For Women] 1 each PO DAILY Sertraline HCl [Zoloft 50 Mg Tablet] 50 mg PO DAILY 07/05/11 Topiramate [Topamax] 100 mg PO TID 07/05/11 Hydrocodone/Acetaminophen [Vicodin 5-300 mg Tablet] 1 - 2 tab PO ASDIR PRN #15 tab 12/17/13 Ondansetron HCl [Zofran 4 mg Tablet] 1 - 2 tab PO Q4H PRN #10 tablet 12/17/13 Acetaminophen [Tylenol Extra Strength] 500 mg PO ASDIR PRN 08/07/14 Lactobacillus Acidophilus [Florajen] 460 mg PO DAILY 08/07/14 Pseudoephedrine HCl [Sudafed 12-Hour] 1 tab PO ASDIR PRN 08/07/14 Rizatriptan Benzoate [Maxalt] 10 mg PO ASDIR PRN 08/07/14 Warfarin Sodium 4 mg PO ASDIR 08/07/14 Guaifenesin 400 mg PO DAILY 02/24/17 Ranitidine HCl [Zantac 75 mg Tablet] 75 mg PO BID 02/24/17 Warfarin Sodium 5 mg PO ASDIR 02/24/17 Cephalexin Monohydrate [Keflex 500 mg Capsule] 500 mg PO Q6H 5 Days capsule 10/26 Oxymetazoline HCl [Afrin] 20 ml NS Q8HP PRN #30 drops 02/15/18 Allergies/Adverse Reactions: diphenhydramine HCl [From Benadryl] Allergy (Severe, Verified 02/25/17 08:57) HEART RACING, RESTLESS LEG metoclopramide HCl [From Reglan] Allergy (Severe, Verified 02/25/17 08:57) HEART RACING, RESTLESS LEG prochlorperazine maleate [From Compazine] Allergy (Severe, Verified 02/25/17 08: 57) HEART RACING, RESTLESS LEG promethazine HCl [From Phenergan] Allergy (Severe, Verified 02/25/17 08:57) HEART RACING RESTLESS LEG Sulfa (Sulfonamide Antibiotics) Allergy (Severe, Verified 02/25/17 08:57) Anaphylaxis doxycycline [Doxycycline] Allergy (Mild, Verified 02/25/17 08:57) upset stomach latex [Latex] Allergy (Mild, Verified 02/25/17 08:57) Pruritis oxycodone HCl [From Percocet] Allergy (Mild, Verified 02/25/17 08:57) upset stomach cefdinir [From Omnicef] Allergy (Verified 02/25/17 08:57) Review of Systems Constitutional: ABSENT: chills, fever(s), headache(s), weight gain, weight loss Eyes: ABSENT: visual disturbances Ears: ABSENT: hearing changes Cardiovascular: ABSENT: chest pain, dyspnea on exertion, edema, orthropnea, palpitations Respiratory: ABSENT: cough, hemoptysis Gastrointestinal: ABSENT: abdominal pain, constipation, diarrhea, hematemesis, hematochezia, nausea, vomiting Genitourinary: ABSENT: dysuria, hematuria Musculoskeletal: ABSENT: joint swelling Integumentary: ABSENT: rash, wounds Neurological: ABSENT: abnormal gait, abnormal speech, confusion, dizziness, focal weakness, syncope Psychiatric: ABSENT: anxiety, depression, homidical ideation, suicidal ideation Endocrine: ABSENT: cold intolerance, heat intolerance, polydipsia, polyuria Hematologic/Lymphatic: ABSENT: easy bleeding, easy bruising Physical Exam Vital Signs: Temp Pulse Resp BP Pulse Ox 97.7 F 70 18 135/84 H 99 02/15/18 00:13 02/15/18 00:13 02/15/18 03:01 02/15/18 03:01 02/15/18 03:01 General appearance: PRESENT: cooperative, mild distress, thin, well-developed, well-nourished Head exam: PRESENT: atraumatic, normocephalic Eye exam: PRESENT: conjunctiva pink, EOMI, PERRLA. ABSENT: scleral icterus Ear exam: PRESENT: normal external ear exam Mouth exam: PRESENT: moist, tongue midline, other - Nasal packing in place, suctioning blood clots Throat exam: PRESENT: other Neck exam: ABSENT: carotid bruit, JVD, lymphadenopathy, thyromegaly Respiratory exam: PRESENT: clear to auscultation bebo. ABSENT: accessory muscle use, rales, rhonchi, wheezes Cardiovascular exam: PRESENT: RRR. ABSENT: diastolic murmur, rubs, systolic murmur Pulses: PRESENT: normal dorsalis pedis pul Vascular exam: PRESENT: normal capillary refill GI/Abdominal exam: PRESENT: normal bowel sounds, soft. ABSENT: distended, guarding, mass, organolmegaly, rebound, tenderness Rectal exam: PRESENT: deferred Extremities exam: PRESENT: full ROM. ABSENT: calf tenderness, clubbing, pedal edema Neurological exam: PRESENT: alert, awake, oriented to person, oriented to place , oriented to time, oriented to situation, CN II-XII grossly intact. ABSENT: motor sensory deficit Psychiatric exam: PRESENT: appropriate affect, normal mood. ABSENT: homicidal ideation, suicidal ideation Skin exam: PRESENT: dry, intact, warm. ABSENT: cyanosis, rash Assessment & Plan - Diagnosis (1) Sinus pain Is this a current diagnosis for this admission?: Yes Plan: Fentanyl as needed, empiric antibiotic, follow-up ENT consult (2) Epistaxis Is this a current diagnosis for this admission?: Yes Plan: Follow-up ENT consult (3) Lupus anticoagulant disorder Is this a current diagnosis for this admission?: Yes Plan: Bleeding to spite subtherapeutic INR, consult buck swamper Dr. Spencer - Time Time Spent: 30 to 50 Minutes
[2018-02-15] MEDS: DOCUSATE SODIUM 100 MG CAPSULE PO SCH ×2 (09:23→17:02)
[2018-02-15] MEDS: ACETAMINOPHEN 325 MG TABLET PO PRN ×2 (09:52→20:15)
[2018-02-15] MEDS: AMOXICILLIN TR/POT CLAVULANATE 500-125 MG TAB PO SCH ×3 (10:19→21:27)
[2018-02-15 12:17] LABS: ABSOLUTE BASOPHILS # (AUTO) 0.1 10^3/uL (0.0-0.2); ABSOLUTE EOSINOPHILS # (AUTO) 0.2 10^3/uL (0.0-0.6); ABSOLUTE LYMPHOCYTES (AUTO) 2.8 10^3/uL (0.5-4.7); ABSOLUTE MONOCYTES (AUTO) 0.7 10^3/uL (0.1-1.4); ABSOLUTE NEUT (AUTO) 5.2 10^3/uL (1.7-8.2); BASOPHILS % (AUTO) 0.7 % (0-2); EOSINOPHILS % (AUTO) 2.1 % (0-6); HEMATOCRIT 32.1 % (36.0-47.0); HEMOGLOBIN 11.1 g/dL (12.0-15.5); LYMPHOCYTES % (AUTO) 31.5 % (13-45); MEAN CORPUSCULAR HEMOGLOBIN 32.2 pg (27.0-33.4); MEAN CORPUSCULAR HGB CONC 34.6 g/dL (32.0-36.0); MEAN CORPUSCULAR VOLUME 93 fl (80-97); MONOCYTES % (AUTO) 8.3 % (3-13); PLATELET COUNT 137 10^3/uL (150-450); RED BLOOD COUNT 3.45 10^6/uL (3.72-5.28); RED CELL DISTRIBUTION WIDTH 13.1 % (11.5-14.0); SEGMENTED NEUTROPHILS % (AUTO) 57.4 % (42-78); TOTAL CELLS COUNTED % (AUTO) 100 %
--- NOTE | 2018-02-15 14:01 | PROGRESS NOTE E ---
Progress Note NAME: FRANCA RAMIREZ : 1965 AGE: 53Y DATE: 02/15/2018 ROOM: 309 SUBJECTIVE: I evaluated the patient earlier this morning in the emergency room. I placed an anterior nasal pack, and she is being evaluated for followup. The patient states that she has not had any more bleeding since the pack was placed and she denies any postnasal drip. She denies coughing up any blood. She states that her last drip pad was placed a little bit over an hour ago and has not soaked through. OBJECTIVE: GENERAL: Patient in no apparent distress. NOSE: The nasal packs are in bilaterally. No evidence of active bleeding. A drip pad is in place with some serosanguineous drainage, appears to be very mild. ORAL CAVITY/OROPHARYNX: No evidence of bleeding in the posterior pharynx. It is dry. ASSESSMENT: EPISTAXIS WITH BILATERAL ANTERIOR NASAL PACKS. NO EVIDENCE OF ACTIVE BLEED. PLAN: 1. The diagnosis and treatment plan were discussed with the patient. 2. Recommend the patient be placed on a broad-spectrum antibiotic. This was discussed with the nursing staff to pass on to the attending physician. 3. Recommend spraying Afrin nasal spray to each nasal pack every 3-4 hours. 4. Recommend placement of MONICA hose since the patient will be in a recumbent position. 5. Activity level is low. No strenuous activity. No bending over. The head should always be kept higher than the level of the heart. 6. The patient is going to follow up with her time cycle operator in [place] next week for pack removal. DICTATING PHYSICIAN: PURA AGUIRRE M.D. [id number] PHY#: [id number] ID: [id number] JOB#: [id number] ACCT: [id number] cc: >
--- NOTE | 2018-02-15 14:12 | CONSULTATION REPORT E ---
Consultation Report NAME: FRANCA RAMIREZ : 1965 AGE: 53Y DATE: 02/15/2018 309 A TO: PURA AGUIRRE MD FROM: KATIE ESTEVEZ M.D. Requesting Physician HISTORY: A 53-year-old female who presented to the Emergency Room with epistaxis. Attempts to stop the epistaxis by the ER staff were unsuccessful and Otolaryngology was consulted for evaluation and treatment. The patient has a history of having antiphospholipid syndrome which is a hypocoagulability state and is on Coumadin. She is being followed by an granite polisher machine in [place] and recently had a septal button placed secondary to a nasoseptal perforation. The septal button was removed about a week ago. It started bleeding and some packing was placed into the left nasal cavity. The patient removed this packing a couple of days ago and that resulted in the epistaxis that she could not stop, so she presented to the Emergency Room for the epistaxis. PERTINENT REVIEW OF SYSTEMS: Negative. PAST MEDICAL HISTORY: antiphospholipid syndrome. PHYSICAL EXAM: GENERAL: Patient is in no apparent distress. NOSE: Packing is noted in the bilateral nasal cavities. The left side is flush with the nasal seal. The right nasal cavity, the packing appears to be half out of the nasal cavity but no active bleeding is noted. ORAL CAVITY/OROPHARYNX: Dry. Appears to be a clot just superior to the soft palate, but again no active bleeding is noted. NECK: Exam is negative. CARDIOVASCULAR: Exam is negative. PULMONARY: Exam is negative. GI: Exam is negative. NEUROLOGIC: Negative. SKIN: Normal. EYES: Normal. PROCEDURE: The left nasal pack was removed and a clot was noted posterior to the nasoseptal perforation. This was suctioned and then there was also active bleeding noted coming from the same area at the posterior aspect of the septal perforation. Next, a Merocel pack coated with bacitracin was placed into the left nasal cavity back to the choanae. This was then infiltrated with Afrin nasal spray for vasoconstriction. After placement of the pack, the bleeding had stopped. There was no longer bleeding coming from that left side and view of the oral cavity and oropharynx was dry. No evidence of active bleeding. There was a clot just at the superior aspect of the soft palate. Prior to placing the pack, pledgets soaked with 4% cocaine were placed in each nasal cavity for approximately 4 minutes and then they were removed. The patient tolerated the procedure well. ASSESSMENT: 1. EPISTAXIS. 2. ANTIPHOSPHOLIPID SYNDROME. PLAN: 1. The diagnosis and treatment plan discussed with the patient who voiced understanding. 2. I discussed the treatment plan with the Emergency Room physician and recommend the patient be discharged on oral antibiotics and to apply Afrin to that nasal pack every 3 to 4 hours. 3. The patient is going to follow up with her ENT in [place] for pack removal in 5 days. I recommend the pack stay in for at least 5 days. DICTATING PHYSICIAN: PURA AGUIRRE M.D. [id number] PHY#: [id number] ID: [id number] JOB#: [id number] ACCT: [id number] cc:PURA AGUIRRE MD > MTDD
--- NOTE | 2018-02-15 14:34 | Progress Note ---
Provider Note Provider Note: This is 53 years old female patient admitted for epistaxis. Patient had previous sinus surgery for maxillary sinusitis which complicated by recurrent epistaxis. Patient has been on Coumadin for for antiphospholipid antibody syndrome. Currently her Coumadin is on hold. I seen patient and accepted her.
[2018-02-15] MEDS: FENTANYL CITRATE INJ/PF 100 MCG/2 ML AMPUL IV PRN (21:32)
[2018-02-16] MEDS: FENTANYL CITRATE INJ/PF 100 MCG/2 ML AMPUL IV PRN ×3 (04:45→17:26)
[2018-02-16 05:19] LABS: ABSOLUTE EOSINOPHILS # (AUTO) 0.2 10^3/uL (0.0-0.6); ABSOLUTE LYMPHOCYTES (AUTO) 2.1 10^3/uL (0.5-4.7); ABSOLUTE MONOCYTES (AUTO) 0.6 10^3/uL (0.1-1.4); ABSOLUTE NEUT (AUTO) 3.7 10^3/uL (1.7-8.2); BASOPHILS % (AUTO) 0.7 % (0-2); EOSINOPHILS % (AUTO) 2.9 % (0-6); HEMATOCRIT 34.8 % (36.0-47.0); HEMOGLOBIN 11.8 g/dL (12.0-15.5); LYMPHOCYTES % (AUTO) 31.3 % (13-45); MEAN CORPUSCULAR VOLUME 94 fl (80-97); MONOCYTES % (AUTO) 9.3 % (3-13); PLATELET COUNT 143 10^3/uL (150-450); RED CELL DISTRIBUTION WIDTH 13.3 % (11.5-14.0); SEGMENTED NEUTROPHILS % (AUTO) 55.8 % (42-78); TOTAL CELLS COUNTED % (AUTO) 100 %; WHITE BLOOD COUNT 6.7 10^3/uL (4.0-10.5)
[2018-02-16] MEDS: AMOXICILLIN TR/POT CLAVULANATE 500-125 MG TAB PO SCH ×3 (05:42→21:19)
[2018-02-16] MEDS: ACETAMINOPHEN 325 MG TABLET PO PRN (07:43)
[2018-02-16] MEDS ORDERED: (PENDING PHARMACY ID) (Rizatriptan Benzoate [Maxalt] 10 MG) PO PRN (09:06)
[2018-02-16] MEDS ORDERED: MULTIVITAMIN TABLET PO SCH (10:00)
[2018-02-16] MEDS ORDERED: (PENDING PHARMACY ID) (Mv-Min/Iron/Folic/Calcium/Vitk [One-A-Day Women's Tablet] 1 EACH) PO SCH (10:00)
[2018-02-16] MEDS ORDERED: CALCIUM CARBONATE 500 MG TABLET PO SCH (10:00)
[2018-02-16] MEDS ORDERED: CETIRIZINE 10 MG TABLET PO SCH (10:00)
[2018-02-16] MEDS: HYDROXYCHLOROQUINE SULFATE 200 MG TABLET PO SCH (10:21)
[2018-02-16] MEDS: TOPIRAMATE 100 MG TABLET PO SCH ×2 (10:21→21:21)
[2018-02-16] MEDS: MAGNESIUM OXIDE 400 MG TABLET PO SCH ×2 (10:21→17:51)
[2018-02-16] MEDS: DOCUSATE SODIUM 100 MG CAPSULE PO SCH ×2 (10:22→17:51)
[2018-02-16] MEDS: GABAPENTIN 300 MG CAPSULE PO SCH ×3 (10:22→22:21)
[2018-02-16] MEDS: GUAIFENESIN 600 MG TABLET.SA PO SCH (10:24)
[2018-02-16 12:06] LABS: INTERNATIONAL RATION (INR) 2.07; PROTHROMBIN TIME 24.3 SEC (11.4-15.4)
[2018-02-16] MEDS: ONDANSETRON HCL INJ/PF 4 MG/2 ML SDV IV PRN ×3 (12:39→21:12)
[2018-02-16] MEDS ORDERED: FENTANYL 50 MCG/HR PATCH.TD72 TD SCH ×2 (13:00)
--- NOTE | 2018-02-16 13:56 | CONSULTATION REPORT E ---
Consultation Report NAME: FRANCA RAMIREZ : 1965 AGE: 53Y DATE: 02/16/2018 ROOM: 309 A TO: МАРИЯ OG M.D. FROM: KATIE ESTEVEZ M.D. Requesting Physician REASON FOR CONSULTATION: Patient on Coumadin with nose bleeding. HISTORY OF PRESENT ILLNESS: The patient is a 53-year-old who was admitted into the hospital for nosebleed. She had presented with slow progressive bleeding from both nostrils. The nose was then packed for days; however, the bleeding persisted. She was referred to the hospitalist for admission. Since she has been in the hospital her nose is still being packed. Coumadin was discontinued. She is anxious and worried. One of her concerns is that she may have underlying lupus and other systemic dysfunctions that might be causing her nosebleeds. She has had no fever. Her weight has been relatively stable. PAST MEDICAL HISTORY: As stated above, included recent history of nosebleeds. She tells that she has had surgery to the nose in the past. She had a recent procedure done in [place] by ENT and since then she has had the continued bleeding from her nose. History of thrombophilia. She has been on chronic anticoagulation. She has a family history of DVT. She tested positive for antiphospholipid antibiotics and was started on anticoagulation since then and has remained on anticoagulation. Denies any history of prior DVT or pulmonary embolism. PHYSICAL EXAMINATION: She is a middle-aged woman. She is thin, not acutely ill looking. Her nose is packed. DIAGNOSTICS: Her labs from February 15 show a white count of 5.8, hemoglobin 11.4, platelet count 134. BUN is 17, creatinine 0.8. INR on February 15 was 1.96. INR on February 16 was 2.07. IMPRESSION AND PLAN: The patient is a 53-year-old with a significant family history of thrombophilia. She had antiphospholipid antibodies and was started on anticoagulation which has continued to date. She is normally very compliant with her Coumadin checks and INR has been between 2 and 3. I agree with holding her Coumadin during this period; if there is concern for blood clot a [place] filter would be appropriate. If her INR does not return to normal she may benefit from vitamin K. I explained to the patient that at this time it was prudent to hold the Coumadin and her fears of pulmonary embolus can be addressed with a Mylo filter. I will be glad to follow up as an outpatient following her discharge if she otherwise remains clinically stable. I thank you for this consultation and allowing me to be part of her care. DICTATING PHYSICIAN: МАРИЯ OG M.D. [id number] PHY#: [id number] ID: [id number] JOB#: [id number] ACCT: [id number] cc:МАРИЯ OG M.D. >
[2018-02-16] MEDS: MULTIVITAMIN TABLET PO SCH (17:51)
[2018-02-16] MEDS: CALCIUM CARBONATE 500 MG TABLET PO SCH (17:52)
[2018-02-16] MEDS: CETIRIZINE 10 MG TABLET PO SCH (21:21)
[2018-02-17] MEDS: ONDANSETRON HCL INJ/PF 4 MG/2 ML SDV IV PRN ×5 (01:12→21:16)
[2018-02-17] MEDS: FENTANYL CITRATE INJ/PF 100 MCG/2 ML AMPUL IV PRN ×2 (01:15→07:56)
[2018-02-17] MEDS: AMOXICILLIN TR/POT CLAVULANATE 500-125 MG TAB PO SCH ×3 (06:16→21:17)
[2018-02-17] MEDS: LANSOPRAZOLE 15 MG TAB.RAP.DR PO SCH (06:20)
[2018-02-17] MEDS ORDERED: (PENDING PHARMACY ID) (Esomeprazole Magnesium [Nexium 24hr] 20 MG) PO SCH (08:00)
[2018-02-17] MEDS ORDERED: (PENDING PHARMACY ID) (Guaifenesin [Mucinex] 600 MG) PO SCH (08:00)
[2018-02-17] MEDS: HYDROXYCHLOROQUINE SULFATE 200 MG TABLET PO SCH (10:33)
[2018-02-17] MEDS: MAGNESIUM OXIDE 400 MG TABLET PO SCH ×3 (10:33→17:19)
[2018-02-17] MEDS: DOCUSATE SODIUM 100 MG CAPSULE PO SCH ×2 (10:33→17:19)
[2018-02-17] MEDS: GUAIFENESIN 600 MG TABLET.SA PO SCH (10:33)
[2018-02-17] MEDS: GABAPENTIN 300 MG CAPSULE PO SCH ×2 (10:33→21:21)
[2018-02-17] MEDS: TOPIRAMATE 100 MG TABLET PO SCH ×3 (10:33→21:16)
--- NOTE | 2018-02-17 11:27 | PDOC DISCHARGE SUMMARY ---
General - Admit/Disc Date/PCP Admission Date/Primary Care Provider: 02/15/18 04:30 RISHABH GREWAL PA-C Discharge Date: 02/17/18 - Discharge Diagnosis (1) Epistaxis Is this a current diagnosis for this admission?: Yes (2) Lupus anticoagulant disorder Is this a current diagnosis for this admission?: Yes - Additional Information Resuscitation Status: Full Code Home Medications: Alendronate Sodium [Fosamax 70 mg Tablet] 70 mg PO SOLIS@1000 02/15/18 Calcium Carbonate [Os-Trace 500 mg Tablet (Oyster-Shell)] 500 mg PO DAILY Cetirizine HCl [Zyrtec 10 mg Tablet] 10 mg PO DAILY 02/15/18 Cyclobenzaprine HCl [Flexeril 10 mg Tablet] 10 mg PO Q8HP PRN MDD PT USUALLY ONLY TAKES QHS 02/15/18 Esomeprazole Magnesium [Nexium 24Hr] 20 mg PO QAM 02/15/18 Gabapentin [Neurontin 300 mg Capsule] 300 mg PO Q12 02/15/18 Guaifenesin [Mucinex] 600 mg PO QAM 02/15/18 Hydroxychloroquine Sulfate [Plaquenil 200 mg Tablet] 200 mg PO DAILY 02/15/18 Magnesium Oxide [Mag-Ox 400 mg Tablet] 400 mg PO BID 02/15/18 Mv-Min/Iron/Folic/Calcium/Vitk [One-A-Day Women's Tablet] 1 each PO DAILY Rizatriptan Benzoate [Maxalt] 10 mg PO ASDIR PRN MDD 2 TABS 02/15/18 Topiramate [Topamax 100 Mg Tablet] 100 mg PO QAM 02/15/18 Topiramate [Topamax 100 Mg Tablet] 200 mg PO QHS 02/15/18 Warfarin Sodium [Coumadin 4 mg Tablet] 4 mg PO MOTUWETH@0 02/15/18 Warfarin Sodium [Coumadin 5 mg Tablet] 5 mg PO SUFRSA@0 02/15/18 History of Present Illness History of Present Illness: FRANCA RAMIREZ is a 53 year old female with a past medical history of complicated maxillary sinusitis with sinus surgery and revision, recurrent epistaxis, lupus anticoagulant, opiate dependent chronic pain, fibromyalgia and possible diarrhea predominant irritable bowel syndrome. Patient presents with 12 hours of slow and progressive bleeding from both nostrils. Patient had packing until 3 days ago following sinus surgery with button removal. She denies fever chills nausea or vomiting. Emergency room provider is unsuccessful with [facility] and [facility]. ENT Dr. Rodriguez is consulted for persistent posterior oropharynx bleeding. She is referred to the hospitalist for admission. Patient denies recent change in medications. Hospital Course Hospital Course: his is a 53 years old female patient admitted with recurrent epistaxis. Patient had surgery on her nasal septum and it is complicated by recurrent epistaxis. The epistaxis gets worse because patient has been on Coumadin for antiphospholipid syndrome. This morning I seen patient resting in bed she is not in pain or distress. I discussed the case with her director enterprise sales who recommended IVC filter. The vascular surgeon Dr. Saez deferred doing the IVC filter after he discussed with this patient his director enterprise sales. Currently patient is stable she is not in pain or distress her hematocrit and hemoglobin is stable at 9.8. Patient is stable enough to be discharged today. Patient advised to see her primary director enterprise sales and her and surgeon at [facility]. Physical Exam Vital Signs: Temp Pulse Resp BP Pulse Ox 98.1 F 63 16 91/40 L 100 02/17/18 07:42 02/17/18 07:42 02/17/18 07:42 02/17/18 07:42 02/17/18 07:42 Intake & Output 02/16/18 02/17/18 02/18/18 06:59 06:59 06:59 Intake Total 1279 455 Balance 1279 455 Weight 54.8 kg 53.7 kg General appearance: PRESENT: no acute distress Head exam: PRESENT: atraumatic Eye exam: PRESENT: conjunctiva pink Mouth exam: PRESENT: dry mucosa Neck exam: ABSENT: carotid bruit, JVD, lymphadenopathy, thyromegaly GI/Abdominal exam: PRESENT: normal bowel sounds, soft. ABSENT: distended, guarding, mass, organolmegaly, rebound, tenderness Neurological exam: PRESENT: alert, awake, oriented to time, oriented to situation Results Laboratory Results: 02/16/18 04:16 Qualifiers - * PATIENT BEING DISCHARGED WITH ANY OF THE FOLLOWING DIAGNOSIS: No
--- NOTE | 2018-02-17 13:43 | PDOC PROGRESS REPORT ---
Subjective Progress Note for:: 02/17/18 Subjective:: Patient is about to be discharged but she develops nausea vomiting and headache so the discharge is postponed for tomorrow. This morning patient is scheduled to have IVC filter but Dr. Saez deferred to the procedure. Reason For Visit: EPISTAXIS, LUPUS Physical Exam Vital Signs: Temp Pulse Resp BP Pulse Ox 97.8 F 77 16 121/44 L 100 02/17/18 12:05 02/17/18 12:05 02/17/18 12:05 02/17/18 12:04 02/17/18 12:05 Intake & Output 02/16/18 02/17/18 02/18/18 06:59 06:59 06:59 Intake Total 1279 455 Balance 1279 455 Weight 54.8 kg 53.7 kg General appearance: PRESENT: no acute distress Head exam: PRESENT: atraumatic Eye exam: PRESENT: conjunctiva pink Mouth exam: PRESENT: moist Respiratory exam: PRESENT: clear to auscultation bebo. ABSENT: rales, rhonchi, wheezes GI/Abdominal exam: PRESENT: normal bowel sounds, soft. ABSENT: distended, guarding, mass, organolmegaly, rebound, tenderness Extremities exam: PRESENT: full ROM. ABSENT: calf tenderness, clubbing, pedal edema Neurological exam: PRESENT: alert, awake, oriented to time, oriented to situation Results Laboratory Results: 02/16/18 04:16 Assessment & Plan - Diagnosis (1) Epistaxis Is this a current diagnosis for this admission?: Yes Plan: Continue nasal pack and as needed Afrin spray. Further definitive management per her primary ENT surgeon. (2) Lupus anticoagulant disorder Is this a current diagnosis for this admission?: Yes Plan: She continues to be on Coumadin currently it is on hold. We consulted food safety auditor for recommendation.
[2018-02-17] MEDS ORDERED: SUMATRIPTAN SUCCINATE 100 MG TABLET PO ONE (15:00)
[2018-02-17] MEDS: MULTIVITAMIN TABLET PO SCH (17:25)
[2018-02-17] MEDS: CALCIUM CARBONATE 500 MG TABLET PO SCH (17:25)
[2018-02-17] MEDS: CETIRIZINE 10 MG TABLET PO SCH (21:17)
[2018-02-17] MEDS: ACETAMINOPHEN 325 MG TABLET PO PRN (23:31)
[2018-02-18] MEDS: OXYMETAZOLINE HCL 0.05% NASAL SPRAY 15 ML BOTTLE NASL PRN ×2 (00:02→08:39)
[2018-02-18] MEDS: ONDANSETRON HCL INJ/PF 4 MG/2 ML SDV IV PRN (06:59)
[2018-02-18] MEDS: AMOXICILLIN TR/POT CLAVULANATE 500-125 MG TAB PO SCH ×2 (07:01→13:32)
[2018-02-18] MEDS: LANSOPRAZOLE 15 MG TAB.RAP.DR PO SCH (07:01)
[2018-02-18] MEDS: SUMATRIPTAN SUCCINATE 100 MG TABLET PO PRN ×2 (07:01→09:22)
--- NOTE | 2018-02-18 09:05 | Progress Note ---
Provider Note Provider Note: This is brief addendum to discharge summary I myself dictated for Mrs. Toshia Morales. Patient was supposed to be discharged yesterday but states she developed nausea vomiting and headache and the discharge was on hold. This morning I seen patient propped up in bed she is awake alert oriented she is not in distress she limits her nausea vomiting and headache has subsided and she wants to go home. Her vital signs are within normal limits and patient is stable enough to be discharged. Patient advised to have a follow-up with her primary ENT surgeon and her primary oncologist as soon as possible.
[2018-02-18] MEDS: MAGNESIUM OXIDE 400 MG TABLET PO SCH (09:20)
[2018-02-18] MEDS: GUAIFENESIN 600 MG TABLET.SA PO SCH (09:21)
[2018-02-18] MEDS: DOCUSATE SODIUM 100 MG CAPSULE PO SCH (09:21)
[2018-02-18] MEDS: GABAPENTIN 300 MG CAPSULE PO SCH (09:22)
[2018-02-18] MEDS: TOPIRAMATE 100 MG TABLET PO SCH (09:22)
[2018-02-18] MEDS: HYDROXYCHLOROQUINE SULFATE 200 MG TABLET PO SCH (09:22)
[2018-02-18 12:05] VITALS: BP 105/38
[2018-02-19] MEDS ORDERED: (PENDING PHARMACY ID) (Alendronate Sodium [Fosamax 70 Mg Tablet] 70 MG) PO SCH (10:00)
== END 2018-02-18 14:38 | disposition home or self-care (01) | DRG 920 ==
LOC: ER 23:57 → EH 02-15 04:30 → 3N 02-15 08:28 → 3S 02-18 05:18
PROVIDERS: ADMIT Internal Medicine; ATTEND Internal Medicine
PROC: 2Y41X5Z Packing of Nasal Region using Packing Material (ICD-10-PCS; principal; 2018-02-15)
PROC: 099M7ZZ Drainage of Nasal Septum, Via Natural or Artificial Opening (ICD-10-PCS; 2018-02-15)
PROC: 3E0234Z Introduction of Serum, Toxoid and Vaccine into Muscle, Percutaneous Approach (ICD-10-PCS; 2018-02-17)
DX: J95.830 Postprocedural hemorrhage of a respiratory system organ or structure following a respiratory system procedure (principal); D68.62 Lupus anticoagulant syndrome; R04.0 Epistaxis; T45.515A Adverse effect of anticoagulants, initial encounter; J32.0 Chronic maxillary sinusitis; K21.9 Gastro-esophageal reflux disease without esophagitis; G89.29 Other chronic pain; C44.90 Unspecified malignant neoplasm of skin, unspecified; M79.7 Fibromyalgia; K58.0 Irritable bowel syndrome with diarrhea; Y83.9 Surgical procedure, unspecified as the cause of abnormal reaction of the patient, or of later complication, without mention of misadventure at the time of the procedure; Y92.530 Ambulatory surgery center as the place of occurrence of the external cause; Z98.890 Other specified postprocedural states; Z79.01 Long term (current) use of anticoagulants; Z79.891 Long term (current) use of opiate analgesic; Z86.14 Personal history of Methicillin resistant Staphylococcus aureus infection; Z23 Encounter for immunization
CPT/HCPCS: 36415; 80048; 85025; 85610; 86850; 86900; 86901; 90686; 96374; 99284; J2405; J3010; J3490

== ENCOUNTER 2019-01-05 08:17 | Day surgery (SDC) | payer MEDICARE ==
[~2019-01-05 08:17] MED LIST changes: -LACTATED RINGERS 1000 ML IV PRN; -LIDOCAINE 0.5% INJ-PF (5 MG/ML) 50 ML SDV SUBCUT PRN; +LIDOCAINE 2% INJ-PF (100 MG/5 ML) SYRINGE ONE; +PROPOFOL INJ 200 MG/20 ML VIAL IV ONE
[2019-01-05 10:14] VITALS: BP 110/64
--- NOTE | 2019-01-05 11:26 | Operative Report ---
Operative Report DATE OF SURGERY: 01/05/19 Operative Report: The risks, benefits and alternatives of the procedure including the risk of bleeding, perforation requiring surgery have been explained to the patient in detail and informed consent has been obtained. The patient has taken back to the endoscopy suite and placed in a left, lateral decubital position. Timeout was called. Propofol medication is administered. Rectal examination is done which did not reveal any masses, tears or fissures. An Olympus videoscope was introduced into the patient's rectum. The scope was then carefully advanced all the way to the cecum. The cecum was identified by the usual anatomical landmarks including the ileocecal valve as well as the appendiceal office. Photodocumentation is obtained. The scope was then sequentially pulled back via the various segments of the colon including the ascending colon, hepatic flexure, transverse colon, splenic flexure, descending colon finding to the rectosigmoid portions of the colon. Retroflexion maneuvers performed. The risks benefits and alternatives of the procedure explained to the patient in detail and informed consent is obtained.A GIF Olympus video scope was inserted into the patient's mouth and hypopharynx ,the esophagus is identified intubated and insufflated ,the scope was then advanced through the esophagus stomach and duodenum, retroflexion maneuver is done, the esophagus stomach and first and second portions of the duodenum examined. PREOPERATIVE DIAGNOSIS: Change of bowel habits, gastroesophageal reflux disease POSTOPERATIVE DIAGNOSIS: Redundant colon. Right colon inflammation status post biopsy. Gastritis status post biopsy OPERATION: Colonoscopy with biopsy. EGD with biopsy SURGEON: DULCE SALAS ANESTHESIA: LMAC TISSUE REMOVED OR ALTERED: As noted above. COMPLICATIONS: None. ESTIMATED BLOOD LOSS: None. INTRAOPERATIVE FINDINGS: As noted above. PROCEDURE: Patient tolerated the procedure well. No immediate postprocedure complications are noted. Patient is discharged in good condition. Discharge date 01/05/2019. Discharge diet: Regular. Discharge activity: Regular. 2 to 3-week follow-up to discuss findings. Patient is instructed to call the office or proceed to the emergency room should there be any further problems or questions. Wait on the pathology.
== END 2019-01-05 10:26 | disposition home or self-care (01) ==
LOC: END 08:17
PROVIDERS: ATTEND Internal Medicine Gastroenterology
DX: K29.50 Unspecified chronic gastritis without bleeding (principal); K52.9 Noninfective gastroenteritis and colitis, unspecified; K21.9 Gastro-esophageal reflux disease without esophagitis; M32.9 Systemic lupus erythematosus, unspecified; D68.61 Antiphospholipid syndrome; Z79.899 Other long term (current) drug therapy; Z79.82 Long term (current) use of aspirin
CPT/HCPCS: 43239; 45380; 88342 ×2; 88305 ×2; 00813; J2001; J2704; 813

== ENCOUNTER 2019-02-26 10:29 | Emergency (ER) | payer MEDICARE ==
--- NOTE | 2019-02-26 11:23 | ER Document Report ---
ED Medical Screen (RME) - General Chief Complaint: Nose Bleed Stated Complaint: NOSE BLEED, PAIN Time Seen by Provider: 02/26/19 11:14 Primary Care Provider: RISHABH GREWAL PA-C [Primary Care Provider] - Follow up as needed Mode of Arrival: Ambulatory Information source: Patient Notes: 54-year-old female with history of lupus fibromyalgia antiphospholipid syndrome presents emergency department with complaints of epistaxis. Reports history of epistaxis. Patient reports she was seen at the ENT at [place] last . They cauterized 2 areas on her nose. Reports she had a button in place but had to be removed. She reports increased pain since that time and this morning she had facial swelling. Denies fever vomiting diarrhea. She did contact the ENT but they did not have an appointment for her. I have greeted and performed a rapid initial assessment of this patient. A comprehensive ED assessment and evaluation of the patient, analysis of test r esults and completion of the medical decision making process will be conducted by additional ED providers. Dictation of this chart was performed using voice recognition software; therefore, there may be some unintended grammatical errors. TRAVEL OUTSIDE OF THE [place] IN LAST 30 DAYS: No - Related Data Allergies/Adverse Reactions: diphenhydramine HCl [From Benadryl] Allergy (Severe, Verified 02/26/19 11:13) HEART RACING, RESTLESS LEG metoclopramide HCl [From Reglan] Allergy (Severe, Verified 02/26/19 11:13) HEART RACING, RESTLESS LEG prochlorperazine maleate [From Compazine] Allergy (Severe, Verified 02/26/19 11:13) HEART RACING, RESTLESS LEG promethazine HCl [From Phenergan] Allergy (Severe, Verified 02/26/19 11:13) HEART RACING RESTLESS LEG Sulfa (Sulfonamide Antibiotics) Allergy (Severe, Verified 02/26/19 11:13) Anaphylaxis tramadol Allergy (Severe, Verified 02/26/19 11:13) N/V/MIGRAINES doxycycline [Doxycycline] Allergy (Mild, Verified 02/26/19 11:13) upset stomach latex [Latex] Allergy (Mild, Verified 02/26/19 11:13) Pruritis oxycodone HCl [From Percocet] Allergy (Mild, Verified 02/26/19 11:13) upset stomach cefdinir [From Omnicef] Allergy (Verified 02/26/19 11:13) Home Medications: lupus. fibromyalgia. migraines. antiphosphlipid syndrome Past Medical History - Social History Chew tobacco use (# tins/day): No Frequency of alcohol use: None Drug Abuse: None - Past Medical History Cardiac Medical History: Denies: Hx Coronary Artery Disease, Hx Heart Attack, Hx Hypertension Pulmonary Medical History: Denies: Hx Asthma, Hx Bronchitis, Hx COPD - NODULES OF SCAR TISSUE IN LUNGS, Hx Pneumonia Neurological Medical History: Reports: Hx Migraine. Denies: Hx Cerebrovascular Accident, Hx Seizures Renal/ Medical History: Denies: Hx Peritoneal Dialysis Malignancy Medical History: Reports: Hx Skin Cancer GI Medical History: Reports: Hx Gastroesophageal Reflux Disease Musculoskeltal Medical History: Comment Only Hx Arthritis - FIBROMYALGIA, BURSITIS IN BOTH HIPS/KNEES, Reports Hx Fibromyalgia Psychiatric Medical History: Reports: Hx Depression Infectious Medical History: Reports: Hx MRSA Past Surgical History: Reports: Hx Gynecologic Surgery - ablation, Hx Oral Surgery, Hx Orthopedic Surgery - right knee, Hx Tonsillectomy. Denies: Hx Hysterectomy - Immunizations Hx Diphtheria, Pertussis, Tetanus Vaccination: No Physical Exam - Vital signs Vitals: Temp Pulse Resp BP Pulse Ox 97.8 F 59 L 18 108/60 100 02/26/19 11:00 02/26/19 11:02/26/19 11:02/26/19 11:00 02/26/19 11:00 Course - Vital Signs Vital signs: Temp Pulse Resp BP Pulse Ox 97.8 F 59 L 18 108/60 100 02/26/19 11:02/26/19 11:00 02/26/19 11:00 02/26/19 11:00 02/26/19 11:00 Doctor's Discharge - Discharge Referrals: RISHABH GREWAL PA-C [Primary Care Provider] - Follow up as needed
[2019-02-26 11:53] LABS: ABSOLUTE EOSINOPHILS # (AUTO) 0.1 10^3/uL (0.0-0.6); ABSOLUTE LYMPHOCYTES (AUTO) 1.5 10^3/uL (0.5-4.7); ABSOLUTE MONOCYTES (AUTO) 0.4 10^3/uL (0.1-1.4); ABSOLUTE NEUT (AUTO) 4.1 10^3/uL (1.7-8.2); BASOPHILS % (AUTO) 0.7 % (0-2); EOSINOPHILS % (AUTO) 2.4 % (0-6); HEMATOCRIT 39.1 % (36.0-47.0); HEMOGLOBIN 13.2 g/dL (12.0-15.5); LYMPHOCYTES % (AUTO) 24.1 % (13-45); MEAN CORPUSCULAR HGB CONC 33.8 g/dL (32.0-36.0); MEAN CORPUSCULAR VOLUME 98 fl (80-97); MONOCYTES % (AUTO) 6.8 % (3-13); PLATELET COUNT 132 10^3/uL (150-450); RED CELL DISTRIBUTION WIDTH 12.9 % (11.5-14.0); TOTAL CELLS COUNTED % (AUTO) 100 %; WHITE BLOOD COUNT 6.2 10^3/uL (4.0-10.5)
[2019-02-26 12:17] LABS: ALBUMIN 4.7 g/dL (3.5-5.0); ALKALINE PHOSPHATASE 85 U/L (38-126); ANION GAP 10 (5-19); ASPARTATE AMINO TRANSFERASE 44 U/L (14-36); BILIRUBIN,DIRECT 0.1 mg/dL (0.0-0.4); BILIRUBIN,TOTAL 0.4 mg/dL (0.2-1.3); BLOOD UREA NITROGEN 19 mg/dL (7-20); CARBON DIOXIDE 24 mmol/L (22-30); CHLORIDE 110 mmol/L (98-107); GLUCOSE 80 mg/dL (75-110); POTASSIUM 4.4 mmol/L (3.6-5.0); TOTAL PROTEIN 7.8 g/dL (6.3-8.2)
--- NOTE | 2019-02-26 13:03 | RADIOLOGY REPORT (SQ) ---
EXAM DESCRIPTION: CT FACIAL AREA WITH COMPLETED DATE/TIME: 02/26/2019 12:41 pm REASON FOR STUDY: facial swelling COMPARISON: None. TECHNIQUE: Post contrast images through the facial bones and orbits windowed for bone and soft tissu e. Additional coronal and sagittal reconstructed images reviewed. All images stored on PACS. All CT scanners at this facility use dose modulation, iterative reconstruction, and/or weight based d osing when appropriate to reduce radiation dose to as low as reasonably achievable (ALARA). [facility]: Dose Right [facility]: CareDose [facility]: Dose Right [facility]: Teradose 4D [facility]: [place] CONTRAST TYPE AND DOSE: contrast/concentration: Isovue 350.00 mg/ml; Total Contrast Delivered: 50.0 ml; Total Saline Delivered: 49.0 ml RENAL FUNCTION: BUN 19 creatinine 0.79 RADIATION DOSE: CT Rad equipment meets quality standard of care and radiation dose reduction techniq ues were employed. CTDIvol: 6.0 mGy. DLP: 138 mGy-cm. . LIMITATIONS: None. FINDINGS: FACIAL BONES: No fractures. ORBITS: Intact. No fracture. Symmetric intact globes and retroorbital soft tissues. PARANASAL SINUSES: Clear. No significant mucosal thickening, mass or fluid. No nasal polyps. Maxilla ry sinus outlets are patent. SOFT TISSUES: There are prominent veins in the posterior neck. Is there history of jugular vein thro mbosis? INFERIOR BRAIN: Limited view. No acute findings. OTHER: No other significant finding. IMPRESSION: No significant acute finding is seen in the face. There are prominent veins in the post erior neck raising concern for jugular vein thrombosis. TECHNICAL DOCUMENTATION: JOB ID: [id number] Quality ID # [id number]: Final reports with documentation of one or more dose reduction techniques (e.g., Au tomated exposure control, adjustment of the mA and/or kV according to patient size, use of iterative reconstruction technique) 2010 [employer]- All Rights Reserved Reading location - IP/workstation name: [email or web address]
[2019-02-26] MEDS ORDERED: TRANEXAMIC ACID INJ/PF 1,000 MG/10 ML SDV TOP ONE (13:29)
[2019-02-26] MEDS ORDERED: ACETAMINOPHEN 1,000 MG/100 ML RTUPB IV ONE (13:31)
--- NOTE | 2019-02-26 14:07 | RADIOLOGY REPORT (SQ) ---
EXAM DESCRIPTION: CT SOFT TISSUE NECK WITH COMPLETED DATE/TIME: 02/26/2019 1:40 pm REASON FOR STUDY: poss jugular vein thrombosis, see prior CT report left facial swelling, epistaxis, patient has lupus with antiphospholipid syndrome COMPARISON: Two-view chest 06/06/2015, 06/19/2012 TECHNIQUE: Post IV contrasted scanning from skull base through lung apices with review of bone, soft tissue and lung windows. Reconstructed coronal and sagittal MPR images reviewed. All images stored on PACS. All CT scanners at this facility use dose modulation, iterative reconstruction, and/or weight based d osing when appropriate to reduce radiation dose to as low as reasonably achievable (ALARA). [facility]: Dose Right [facility]: CareDose [facility]: Dose Right [facility]: Teradose 4D [facility]: Prescription Eyewear CONTRAST TYPE AND DOSE: contrast/concentration: Isovue 350.00 mg/ml; Total Contrast Delivered: 75.0 ml; Total Saline Delivered: 55.0 ml RENAL FUNCTION: Creatinine 0.8 RADIATION DOSE: CT Rad equipment meets quality standard of care and radiation dose reduction techniq ues were employed. CTDIvol: 6.0 mGy. DLP: 185 mGy-cm. . LIMITATIONS: None. FINDINGS: SKULL BASE: Intact. Normal emissary veins are seen in the occipital region of doubtful cl inical significance. There is normal contrast enhancement of the transverse and sigmoid sinuses, int ernal and external jugular veins bilaterally. Inferior brain parenchyma in the field of view is unre markable. MAJOR SALIVARY GLANDS: No solid or cystic masses. No inflammatory changes. LYMPHADENOPATHY: No adenopathy. MUCOSAL MASSES OR ASYMMETRY: No mucosal masses or asymmetry. LARYNX/CORDS: No abnormal findings. VASCULAR STRUCTURES: The major vessels are patent. LUNG APICES: At the bottom edge of the field of view on lung windows, a 7 mm nodule is present on axi al image 94/105. A 13 mm nodule is present on axial image 101/105. These nodules are unchanged by p román films dating back to 06/19/2012. BONES: Intact. THYROID: Normal size. 7 mm and 6 mm hypodensities in the right thyroid. Outpatient follow-up thyroi d ultrasound recommended PARANASAL SINUSES: Clear. OTHER: Findings discussed with IMPRESSION: No vascular anomalies. Benign nodules right upper lobe. No findings to explain history of epistaxis. Incidental finding of subcentimeter thyroid nodules for which outpatient follow-up thyroid ultrasound is recommended TECHNICAL DOCUMENTATION: JOB ID: [id number] Quality ID # [id number]: Final reports with documentation of one or more dose reduction techniques (e.g., Au tomated exposure control, adjustment of the mA and/or kV according to patient size, use of iterative reconstruction technique) 2010 [employer]- All Rights Reserved Reading location - IP/workstation name: [email or web address]
--- NOTE | 2019-02-26 14:36 | ER Document Report ---
ED General - General Chief Complaint: Nose Bleed Stated Complaint: NOSE BLEED, PAIN Time Seen by Provider: 02/26/19 11:14 Primary Care Provider: RISHABH GREWAL PA-C [Primary Care Provider] - Follow up as needed Mode of Arrival: Ambulatory Notes: 54-year-old female presents emergency department complaining of persistent epistaxis for quite some time. Patient states that she had her right nostril cauterized on last week at [facility] and she has been having some bleeding from her bilateral nares ever since. Over the past 2 to 3 days she has also developed a dull aching headache that is located in her forehead and in her cheekbones. States it is getting progressively worse. Patient has also noticed a small amount of redness and swelling below her left eye. She is taking Keflex for a vaginal cyst and she is afraid she is having a reaction to this Keflex. Patient states that she is actually a long history of recurrent nosebleeds that lead her to be taken off of warfarin last year. Patient previously been taking warfarin due to her lupus antiphospholipid syndrome. Patient has never had a DVT or PE. Patient states that she called [facility] this morning and was told to go to the emergency department if her nose was continuing to bleed. Denies any dizziness or lightheadedness. Denies any bruising across the rest of her body, denies any rash across the rest of her body aside from below her left eye. TRAVEL OUTSIDE OF THE [place] IN LAST 30 DAYS: No - Related Data Allergies/Adverse Reactions: diphenhydramine HCl [From Benadryl] Allergy (Severe, Verified 02/26/19 11:13) HEART RACING, RESTLESS LEG metoclopramide HCl [From Reglan] Allergy (Severe, Verified 02/26/19 11:13) HEART RACING, RESTLESS LEG prochlorperazine maleate [From Compazine] Allergy (Severe, Verified 02/26/19 11:13) HEART RACING, RESTLESS LEG promethazine HCl [From Phenergan] Allergy (Severe, Verified 02/26/19 11:13) HEART RACING RESTLESS LEG Sulfa (Sulfonamide Antibiotics) Allergy (Severe, Verified 02/26/19 11:13) Anaphylaxis tramadol Allergy (Severe, Verified 02/26/19 11:13) N/V/MIGRAINES doxycycline [Doxycycline] Allergy (Mild, Verified 02/26/19 11:13) upset stomach latex [Latex] Allergy (Mild, Verified 02/26/19 11:13) Pruritis oxycodone HCl [From Percocet] Allergy (Mild, Verified 02/26/19 11:13) upset stomach cefdinir [From Omnicef] Allergy (Verified 02/26/19 11:13) Home Medications: lupus. fibromyalgia. migraines. antiphosphlipid syndrome Past Medical History - General Information source: Patient - Social History Smoking Status: Unknown if Ever Smoked Chew tobacco use (# tins/day): No Frequency of alcohol use: None Drug Abuse: None Family History: Arthritis, CAD, Hyperlipidemia, Hypertension, Malignancy. denies: None, Reviewed & Not Pertinent, COPD, CVA, DM, Thyroid Disfunction, Other Patient has suicidal ideation: No Patient has homicidal ideation: No - Past Medical History Cardiac Medical History: Denies: Hx Coronary Artery Disease, Hx Heart Attack, Hx Hypertension Pulmonary Medical History: Denies: Hx Asthma, Hx Bronchitis, Hx COPD - NODULES OF SCAR TISSUE IN LUNGS, Hx Pneumonia Neurological Medical History: Reports: Hx Migraine. Denies: Hx Cerebrovascular Accident, Hx Seizures Renal/ Medical History: Denies: Hx Peritoneal Dialysis Malignancy Medical History: Reports: Hx Skin Cancer GI Medical History: Reports: Hx Gastroesophageal Reflux Disease Musculoskeletal Medical History: Comment Only Hx Arthritis - FIBROMYALGIA, BURSITIS IN BOTH HIPS/KNEES, Reports Hx Fibromyalgia Psychiatric Medical History: Reports: Hx Depression Infectious Medical History: Reports: Hx MRSA Past Surgical History: Reports: Hx Gynecologic Surgery - ablation, Hx Oral Surgery, Hx Orthopedic Surgery - right knee, Hx Tonsillectomy. Denies: Hx Hyst erectomy - Immunizations Hx Diphtheria, Pertussis, Tetanus Vaccination: No Hx Pneumococcal Vaccination: 01/09/18 Review of Systems - Review of Systems Constitutional: No symptoms reported EENT: See HPI Cardiovascular: No symptoms reported. denies: Syncope, Dizziness, Lightheaded Respiratory: No symptoms reported Gastrointestinal: No symptoms reported -: Yes All other systems reviewed and negative Physical Exam - Vital signs Vitals: Temp Pulse Resp BP Pulse Ox 97.8 F 59 L 18 108/60 100 02/26/19 11:00 02/26/19 11:00 02/26/19 11:00 02/26/19 11:00 02/26/19 11:00 Interpretation: Normal - Notes Notes: GENERAL: Alert, interacts well. No acute distress. HEAD: Normocephalic, atraumatic EYES: Pupils equal, round and reactive to light, extraocular movements intact. Minimal very light erythema inferior to the left eye just below the left lid, minimal swelling. No proptosis to the eyeball itself. ENT: Oral mucosa moist, tongue midline. Small ulcerations to the mucosa of the right nostril particularly along the nasal septum. Minimal bleeding noted, no blood noted to the left nostril, small amount of blood in the posterior oropharynx on the right-hand side. NECK: Full range of motion, supple, trachea midline. No JVD. LUNGS: Clear to auscultation bilaterally, no wheezes, rales or rhonchi, no respiratory distress. HEART: Regular rate and rhythm, no murmurs, gallops, rubs. ABDOMEN: Soft, nontender, nondistended, bowel sounds present in all 4 quadrants. EXTREMITIES: Moves all 4 extremities spontaneously, no edema, radial and dorsalis pedis pulses 2/4 bilaterally. No cyanosis. NEUROLOGICAL: Alert and oriented x3, normal speech. PSYCH: Normal mood, normal affect. SKIN: Warm, Dry, normal turgor, no rashes or lesions noted aside from below the left eye. Course - Re-evaluation Re-evalutation: 02/26/19 14:36 CBC shows very slight thrombocytopenia with platelets of 132, hemoglobin is normal at this point multiple days of epistaxis, CMP grossly unremarkable, CT scan of the facial bones ordered from triage does not show any signs of acute sinusitis or acute process around the eyes. It does show "prominent veins in the posterior neck. Is there a history of jugular vein thrombosis?". As the p atient is hypercoagulable and is not anticoagulated and the patient has sensation of pressure in her head and face by do believe jugular vein thrombosis is a possibility so I ordered a CT of the neck with IV contrast to look for jugular vein thrombosis and this was negative. Patient has been given IV acetaminophen to help with her headache, she is neurologically intact, there are no signs of meningismus, no suspicion for meningitis. No evidence of systemic allergic reaction, only has one area of erythema just below the left eye. Keflex will not be changed. Currently patient has TXA soaked packing up her nose and we are waiting to see how this works. 02/26/19 15:32 TXA was removed, no further bleeding, will observe for 30 minutes and if no further bleeding will discharged home. Counseled regarding humidifier, Afrin, direct pressure and Vaseline topically to decrease risk of bleeding. Patient does mention that she feels like she is been having slightly more blurry vision for the past couple of days. Visual acuity will be checked. 02/26/19 16:42 See nursing notes for visual acuity, it is grossly normal. Bleeding has stopped. Patient will be discharged home. - Vital Signs Vital signs: Temp Pulse Resp BP Pulse Ox 98.0 F 60 18 104/64 100 02/26/19 16:40 02/26/19 16:40 02/26/19 16:40 02/26/19 16:40 02/26/19 16:40 - Laboratory Result Diagrams: 02/26/19 11:26 02/26/19 11:26 Laboratory results interpreted by me: 02/26/19 02/26/19 11:26 11:26 MCV 98 H Plt Count 132 L Chloride 110 H AST 44 H Discharge - Discharge Clinical Impression: Recurrent epistaxis Condition: Stable Disposition: HOME, SELF-CARE Additional Instructions: Today we stopped your bleeding by applying topical Tranexemic acid (TXA) to your nose on a gauze pad. Do not blow your nose, pick your nose or put anything in your nose aside from a little vaseline. If your nose starts bleeding again please gently blow your nose, squirt Afrin up both nostrils and then hold firm pressure on your nose for 15 minutes constantly without peaking. You may then released pressor but she should not blow your nose at all. If the bleeding has stopped there is no need to return to the emergency department. If you cannot stop the bleeding please return to the emergency department and we will likely end up packing her nose with a nasal tampon. Please call the ear nose and throat doctors who initially cauterized your nose tomorrow morning to give them follow-up. Please use a humidifier, stop taking ibuprofen for now and starting taking acetaminophen for pain. Referrals: RISHABH GREWAL PA-C [Primary Care Provider] - Follow up as needed
[2019-02-26 16:41] VITALS: BP 104/64
== END 2019-02-26 16:52 | disposition home or self-care (01) ==
LOC: ER 10:29
DX: R04.0 Epistaxis (principal); R51 Headache; H53.8 Other visual disturbances; Z86.14 Personal history of Methicillin resistant Staphylococcus aureus infection
CPT/HCPCS: 99284; 96375; 96365; 36415; 85025; 80053; 70487; 70491; J0131; J3490

== ENCOUNTER → 2019-10-25 | Outpatient (CLI) | payer MEDICARE ==
--- NOTE | 2019-10-25 09:34 | WOMENS IMAGING REPORT ---
EXAM DESCRIPTION: BILAT SCREENING MAMMO W/CAD IMAGES COMPLETED DATE/TIME: 10/25/2019 8:36 am REASON FOR STUDY: Z12.31 ENCOUNTER FOR SCREENING MAMMOGRAM FOR MALIGNANT NEOPLASM OF BREAST Z12.31 ENCNTR SCREEN MAMMOGRAM FOR MALIGNANT NEOPLASM OF [place] COMPARISON: 01/18/2017 and 10/30/2015. EXAM PARAMETERS: Standard craniocaudal and mediolateral oblique views of each breast recorded using digital acquisition. Read with the assistance of CAD. .[facility] - R2 Director Of Financial Planning Version 9.2 LIMITATIONS: None. FINDINGS: No suspicious masses, suspicious calcifications or architectural distortion. No areas of c oncern. IMPRESSION: NEGATIVE MAMMOGRAM. BIRADS 1 BREAST DENSITY: d. The breasts are extremely dense, which lowers the sensitivity of mammography. BIRAD: ASSESSMENT: 1 NEGATIVE RECOMMENDATION: ROUTINE SCREENING COMMENT: The patient has been notified of the results by letter per MQSA requirements. Additional no tification policies are in place for contacting patient with suspicious or incomplete findings. Quality ID #[id number]: The [employer] recommends an annual screening mammogram for women aged 40 years or over. This facility utilizes a reminder system to ensure that all patients receive reminder letters, and/or direct phone calls for appointments. This includes reminders for routine scr eening mammograms, diagnostic mammograms, or other Breast Imaging Interventions when appropriate. Th is patient will be placed in the appropriate reminder system. TECHNICAL DOCUMENTATION: FINDING NUMBER: (1) ASSESSMENT: (1) JOB ID: [id number] 2010 [employer]- All Rights Reserved Reading location - IP/workstation name: [email or web address]-[facility]-SAMMIE
== END ==
LOC: WI 08:01
PROVIDERS: ATTEND Obstetrics & Gynecology
DX: Z12.31 Encounter for screening mammogram for malignant neoplasm of breast (principal)
CPT/HCPCS: 77067

== ENCOUNTER → 2019-11-19 | Outpatient (CLI) | payer MEDICARE ==
--- NOTE | 2019-11-19 12:55 | RADIOLOGY REPORT (SQ) ---
EXAM DESCRIPTION: LUMBAR SPINE COMPLETE IMAGES COMPLETED DATE/TIME: 11/19/2019 12:05 pm REASON FOR STUDY: LOW BACK PAIN M54.5 LOW BACK PAIN COMPARISON: None. NUMBER OF VIEWS: Five views including obliques. TECHNIQUE: AP, lateral, oblique, and sacral radiographic images acquired of the lumbar spine. LIMITATIONS: None. FINDINGS: MINERALIZATION: Normal. SEGMENTATION: Normal. No transitional anatomy. ALIGNMENT: Normal. VERTEBRAE: Maintained height. No fracture or worrisome bone lesion. DISCS: Preserved height. No significant osteophytes or end plate irregularity. POSTERIOR ELEMENTS: Pedicles and facets are intact. No pars defect or posterior arch defects. HARDWARE: None in the spine. PARASPINAL SOFT TISSUES: Normal. PELVIS: Intact as visualized. No fractures or worrisome bone lesions. SI joints intact. OTHER: No other significant finding. IMPRESSION: NORMAL 5 VIEW LUMBAR SPINE. TECHNICAL DOCUMENTATION: JOB ID: [id number] 2010 [employer]- All Rights Reserved Reading location - IP/workstation name: [email or web address]
== END ==
LOC: OD 11:40
PROVIDERS: ATTEND Physician Assistant
DX: M54.5 Low back pain (principal)
CPT/HCPCS: 72110

== ENCOUNTER → 2020-01-21 | Outpatient (CLI) | payer MEDICARE ==
[2020-01-21 15:03] VITALS: BP 108/55
--- NOTE | 2020-01-21 15:03 | ER RDC ASSESSMENT REPORT ---
Intake - In the Last 14 days Have you traveled outside [place]?: No Have you been in close contact with someone CONFIRMED: No Worked in Healthcare?: No - Symptoms Subjective Fever([place] feverish): No Chills: Yes Muscule Aches: Yes Runny Nose: No Sore Throat: Yes Cough (New or worsening chronic cough): No Shortness of breath: No Nausea or Vomiting: No Headache: No Abdominal Pain: No Diarrhea(3 or more loose stools in last 24 hours): Yes - Do you have any of the following Chronic lung disease: Asthma or emphysema or COPD: No Cystic Fibrosis: No Diabetes: No High Blood Pressure: No Cardiovascular Disease: No Chronic Kidney Disease: No Chronic Liver Disease: No Chronic blood disorder like Sickle Cell Disease: No Weak immune system due to disease or medication: No Neurologic condition that limits movement: No Developmental delay - Moderate to Severe: No Recent (within past 2 weeks) or current : No Morbid Obesity (>100 pounds over ideal weight): No Obesity Comment: Height 5 feet 5 inches weight 112 pounds. Other Comment: Patient has a history of lupus - Objective Temperature: 98.0 F Pulse Rate: 57 Respiratory Rate: 18 Blood Pressure: 108/55 O2 Sat by Pulse Oximetry: 98 Objective: Given above, testing performed: If Testing Performed: Test Specimen Type Sent to General - General Information source: Patient Notes: Patient here at [facility] for cover testing patient started to develop symptoms over a week ago and is not sure if she has had any known positive exposures that she is aware of. Patient PCP is out of [facility] in [place] plans to follow-up with them today. - Related Data Allergies/Adverse Reactions: diphenhydramine HCl [From Benadryl] Allergy (Severe, Verified 02/26/19 11:13) HEART RACING, RESTLESS LEG metoclopramide HCl [From Reglan] Allergy (Severe, Verified 02/26/19 11:13) HEART RACING, RESTLESS LEG prochlorperazine maleate [From Compazine] Allergy (Severe, Verified 02/26/19 11:13) HEART RACING, RESTLESS LEG promethazine HCl [From Phenergan] Allergy (Severe, Verified 02/26/19 11:13) HEART RACING RESTLESS LEG Sulfa (Sulfonamide Antibiotics) Allergy (Severe, Verified 02/26/19 11:13) Anaphylaxis tramadol Allergy (Severe, Verified 02/26/19 11:13) N/V/MIGRAINES doxycycline [Doxycycline] Allergy (Mild, Verified 02/26/19 11:13) upset stomach latex [Latex] Allergy (Mild, Verified 02/26/19 11:13) Pruritis oxycodone HCl [From Percocet] Allergy (Mild, Verified 02/26/19 11:13) upset stomach cefdinir [From Omnicef] Allergy (Verified 02/26/19 11:13) Past Medical History - General Information source: Patient - Social History Smoking Status: Never Smoker Family History: Arthritis, CAD, Hyperlipidemia, Hypertension, Malignancy - Past Medical History Cardiac Medical History: Denies: Hx Coronary Artery Disease, Hx Heart Attack, Hx Hypertension Pulmonary Medical History: Denies: Hx Asthma, Hx Bronchitis, Hx COPD - NODULES OF SCAR TISSUE IN LUNGS, Hx Pneumonia Neurological Medical History: Reports: Hx Migraine. Denies: Hx Cerebrovascular Accident, Hx Seizures Renal/ Medical History: Denies: Hx Peritoneal Dialysis Malignancy Medical History: Reports: Hx Skin Cancer GI Medical History: Reports: Hx Gastroesophageal Reflux Disease Musculoskeletal Medical History: Comment Only Hx Arthritis - FIBROMYALGIA, BURSITIS IN BOTH HIPS/KNEES, Reports Hx Fibromyalgia Psychiatric Medical History: Reports: Hx Depression Infectious Medical History: Reports: Hx MRSA Past Surgical History: Reports: Hx Gynecologic Surgery - ablation, Hx Oral Surgery, Hx Orthopedic Surgery - right knee, Hx Tonsillectomy. Denies: Hx Hysterectomy, Hx Pacemaker Physical Exam - General General appearance: Appears well, Alert In distress: None Notes: PHYSICAL EXAMINATION: GENERAL: Well-appearing and in no acute distress. HEAD: Atraumatic, normocephalic. EYES: sclera anicteric, conjunctiva are normal. ENT: nares patent. Moist mucous membranes. NECK: Normal range of motion, supple without lymphadenopathy LUNGS: CTAB and equal. No wheezes rales or rhonchi. Respirations even and unlabored lung sounds clear. HEART: Regular rate and rhythm without murmurs ABDOMEN: Soft, nontender, normal bowel sounds, no guarding. EXTREMITIES: Normal range of motion, no pitting edema. No cyanosis. NEUROLOGICAL: Cranial nerves grossly intact. Normal speech. Normal gait. PSYCH: Normal mood, normal affect. SKIN: Warm, Dry, normal turgor, no rashes or lesions noted Diagnostic Results Laboratory Results: Patient informed of negative rapid strep and negative rapid flu results. Pending strep culture pending covid testing results. Patient provided instructions regarding COVID to include: As a person under investigation for Covid 19, the [facility], division of public health advises you to adhere to the following guidance until your test results are reported to you. If your test result is positive, you will receive additional information from your provider and your local health department at that time. Remain at home until you are cleared by the health provider or public health authorities. Keep a log of visitors to your home, notify any visitors to your home of your isolation status. If you plan to move to a new address or leave the county, notify the local health department in your County. Call your doctor or seek care if you have an urgent medical need. Before seeking medical care, call ahead to get instructions from the provider before arriving at the medical office clinic or hospital. Notify them that you are being tested for the virus that causes Covid 19 so that arrangements can be made, as necessary, to prevent transmission to others in the healthcare setting. Next, notify the local health department in your county. If a medical emergency arises and you need to call 911, inform the first responders that you are being tested for the virus that causes Covid 19. Next, notify the local health department in your [facility]. Patient Education/Counseling Counseling/Education: Patient presents with upper respiratory symptoms worrisome for possible Covid 19. Patient does not have emergency worring symptoms such as difficulty breathing, shortness of breath, chest pain, pressure, confusion or cyanosis. Patient appears suitable for discharge. Patient instructed to follow-up with PCP at [facility] in [facility] ED for persistent or worsening symptoms. Patient's vital signs are stable and patient is nontoxic in appearance. Good return precautions have been discussed with patient, patient verbalized understanding and is agreeable with discharge plan of care at this time. RDC Discharge - Discharge Condition: Stable Disposition: Home; Selfcare
[2020-01-21 16:26] LABS: A TYPE INFLUENZA AG NEGATIVE (NEGATIVE); B INFLUENZA AG NEGATIVE (NEGATIVE)
== END ==
LOC: RDC 11:48
PROVIDERS: ATTEND Nurse Practitioner Family
DX: J06.9 Acute upper respiratory infection, unspecified (principal); Z20.828 Contact with and (suspected) exposure to other viral communicable diseases; R68.83 Chills (without fever); J02.9 Acute pharyngitis, unspecified; R19.7 Diarrhea, unspecified; M79.7 Fibromyalgia; K21.9 Gastro-esophageal reflux disease without esophagitis; Z86.14 Personal history of Methicillin resistant Staphylococcus aureus infection; Z88.1 Allergy status to other antibiotic agents; Z88.6 Allergy status to analgesic agent; Z88.8 Allergy status to other drugs, medicaments and biological substances; Z91.040 Latex allergy status; Z85.828 Personal history of other malignant neoplasm of skin
CPT/HCPCS: 87070; 87880; 87804; U0003; C9803; 87635; 99201; 99211

== ENCOUNTER 2020-02-16 20:40 | Emergency (ER) | payer MEDICARE ==
[2020-02-16] MEDS ORDERED: NORMAL SALINE 1000 ML 1,000 ML IV ONE ×2 (21:04→23:13)
[2020-02-16] MEDS ORDERED: ONDANSETRON HCL INJ/PF 4 MG/2 ML SDV IV ONE ×2 (21:05→23:14)
[2020-02-16] MEDS ORDERED: KETOROLAC TROMETHAMINE INJ/PF 30 MG/1 ML SDV IV ONE (21:06)
--- NOTE | 2020-02-16 21:17 | ER Document Report ---
ED General - General Stated Complaint: POSSIBLE POISONING Time Seen by Provider: 02/16/20 20:49 Primary Care Provider: RISHABH GREWAL PA-C [Primary Care Provider] - 02/18/20 TRAVEL OUTSIDE OF THE [place] IN LAST 30 DAYS: No - HPI Context: 55-year-old female presents to the emergency department complaining of nausea, vomiting and diarrhea that has been present for approximately 36 hours. Patient states she was staying at her daughter's home and a emergency medicine came and treated the home for aunts. Pyrotechnist told the patient that there appeared to be ants inside set of dresser drawers. The patient states that she got the dresser drawers out into the garage and set off the insecticide aerosolized "b omb" in the dresser drawers and states that she feels like she got a significant exposure to the insecticide. Patient states that she is felt and especially today and has basically slept all day, not even getting off the couch other than to use the bathroom. Patient states in addition to the nausea, vomiting diarrhea, she is also having a migraine headache and abdominal pain. When asked to describe the pain, patient states that the pain is a 8 on a scale of 0-5. Patient stated that she also has fibromyalgia and lupus. Patient stated she "trying to find it out at home." Patient denies shortness of breath,, chest pain, changes in vision, excessive lacrimation or salivation. Patient states that any type of activity exacerbates the pain and she is found no relieving factors for the pain or the nausea, vomiting diarrhea. Patient states she did take 1 dose of Imodium at home before coming to the ED. Patient describes the headache as throbbing and the abdominal pain is crampy. Patient denies fever, chills, history of Covid infection, history of exposure to known Covid positive persons or persons under investigation for COVID-19. Patient brought a picture of the insecticide product with her. This MD is instructed nursing to contact poison control. The product is known as "sure kill" and contains pyrethrins. Associated symptoms: Other - See HPI Exacerbated by: Other - See HPI Relieved by: Other - See HPI - Related Data Allergies/Adverse Reactions: diphenhydramine HCl [From Benadryl] Allergy (Severe, Verified 02/26/19 11:13) HEART RACING, RESTLESS LEG metoclopramide HCl [From Reglan] Allergy (Severe, Verified 02/26/19 11:13) HEART RACING, RESTLESS LEG prochlorperazine maleate [From Compazine] Allergy (Severe, Verified 02/26/19 11:13) HEART RACING, RESTLESS LEG promethazine HCl [From Phenergan] Allergy (Severe, Verified 02/26/19 11:13) HEART RACING RESTLESS LEG Sulfa (Sulfonamide Antibiotics) Allergy (Severe, Verified 02/26/19 11:13) Anaphylaxis tramadol Allergy (Severe, Verified 02/26/19 11:13) N/V/MIGRAINES doxycycline [Doxycycline] Allergy (Mild, Verified 02/26/19 11:13) upset stomach latex [Latex] Allergy (Mild, Verified 02/26/19 11:13) Pruritis oxycodone HCl [From Percocet] Allergy (Mild, Verified 02/26/19 11:13) upset stomach cefdinir [From Omnicef] Allergy (Verified 02/26/19 11:13) Past Medical History - General Information source: Patient - Social History Smoking Status: Never Smoker Frequency of alcohol use: None Drug Abuse: None Lives with: Family Family History: Arthritis, CAD, Hyperlipidemia, Hypertension, Malignancy Patient has suicidal ideation: No Patient has homicidal ideation: No - Medical History Notes: Patient states she has a history of lupus and fibromyalgia - Past Medical History Cardiac Medical History: Denies: Hx Coronary Artery Disease, Hx Heart Attack, Hx Hypertension Pulmonary Medical History: Denies: Hx Asthma, Hx Bronchitis, Hx COPD - NODULES OF SCAR TISSUE IN LUNGS, Hx Pneumonia Neurological Medical History: Reports: Hx Migraine. Denies: Hx Cerebrovascular Accident, Hx Seizures Renal/ Medical History: Denies: Hx Peritoneal Dialysis Malignancy Medical History: Reports: Hx Skin Cancer GI Medical History: Reports: Hx Gastroesophageal Reflux Disease Musculoskeletal Medical History: Comment Only Hx Arthritis - FIBROMYALGIA, BURSITIS IN BOTH HIPS/KNEES, Reports Hx Fibromyalgia Psychiatric Medical History: Reports: Hx Depression Infectious Medical History: Reports: Hx MRSA Past Surgical History: Reports: Hx Gynecologic Surgery - ablation, Hx Oral Surgery, Hx Orthopedic Surgery - right knee, Hx Tonsillectomy. Denies: Hx Hysterectomy, Hx Pacemaker - Immunizations Hx Diphtheria, Pertussis, Tetanus Vaccination: No Hx Pneumococcal Vaccination: 01/09/18 Review of Systems - Review of Systems Constitutional: See HPI, Weakness EENT: No symptoms reported Cardiovascular: No symptoms reported Respiratory: No symptoms reported Gastrointestinal: Abdominal pain, Diarrhea, Nausea, Vomiting Genitourinary: No symptoms reported Female Genitourinary: No symptoms reported Musculoskeletal: No symptoms reported Skin: No symptoms reported Hematologic/Lymphatic: No symptoms reported Neurological/Psychological: Headaches -: Yes All other systems reviewed and negative Physical Exam - Vital signs Vitals: Resp Pulse Ox 22 H 100 02/16/20 20:45 02/16/20 20:45 - Notes Notes: CONSTITUTIONAL [Vital signs reviewed, Patient appears to be in no acute distress, Alert and oriented X 3.] HEAD [Atraumatic, Normocephalic.] EYES [Eyes are normal to inspection, No discharge from eyes, Extraocular muscles intact, Sclera are normal, Conjunctiva are normal.] ENT [External Ears normal to inspection, Nose examination normal, Posterior pharynx normal, Mouth normal to inspection.] NECK [Normal ROM, No jugular venous distention, No meningeal signs, .] RESPIRATORY CHEST [Chest is nontender, Breath sounds normal, No respiratory distress.] CARDIOVASCULAR [RRR, No murmurs, Normal S1 S2, No rub, No gallop.] ABDOMEN [Abdomen is nontender, No pulsatile masses, No other masses, Bowel sounds normal, No distension, No peritoneal signs, No hernias.] BACK [There is no CVA Tenderness, There is no tenderness to palpation, Normal inspection.] UPPER EXTREMITY [Inspection normal, No cyanosis, No clubbing, No edema, 2+ radial pulses.] LOWER EXTREMITY [Inspection normal, No cyanosis, No clubbing, No edema, No calf tenderness, 2+ femoral pulses.] NEURO [No focal motor deficits, No focal sensory deficits, Speech normal.] SKIN [Skin is warm, Skin is dry, Skin is normal color.] PSYCHIATRIC [Normal affect. ] Course - Re-evaluation Re-evalutation: 02/16/20 23:14 Patient states her pain is better but her nausea is still present. This MD is going to order another liter of fluid and 4 more milligrams of IV Zofran to see if we can relieve the patient's nausea. 02/17/20 00:15 Patient is complaining of persistent nausea and crampy abdominal pain at this time. 02/17/20 03:09 Patient states her headache and abdominal pain have improved. Results of ED MSE discussed with patient and patient's significant other. All questions were a nswered prior to discharge. Emergency signs and symptoms, reasons to return to the emergency department discussed with patient and patient's significant other. 02/17/20 03:48 Patient went from sitting up in bed to pivoting into wheelchair, had sudden onset of nausea and vomiting. Patient states that her symptoms do seem to be worse when she changes position and better when she is laying still. Benign positional vertigo discussed with patient. Plan at this point is to give the patient a scopolamine transdermal patch and a prescription for meclizine along with patient education. - Vital Signs Vital signs: Temp Pulse Resp BP Pulse Ox 98.0 F 12 92/48 L 99 02/17/20 03:36 02/17/20 02:01 02/17/20 02:00 02/17/20 03:00 - Laboratory Result Diagrams: 02/16/20 20:50 02/16/20 20:50 Laboratory results interpreted by me: 02/16/20 02/16/20 20:50 20:50 Hct 35.4 L MCH 33.7 H Plt Count 130 L Seg Neutrophils % 79.8 H Carbon Dioxide 21 L Glucose 122 H - Diagnostic Test Radiology reviewed: Reports reviewed - EKG Interpretation by Me Additional EKG results interpreted by me: 02/16/20 21:46 KG obtained on 02/16/2020 at 2131 hrs. was interpreted by this MD. Findings: Sinus bradycardia, rate 58, normal axis, NE interval appears within normal limit s, P waves preceding QRS complexes, QRS complexes appear narrow, QTC 421, there are no obvious patterns of ST segment elevation, depression or reciprocal changes seen to suggest acute myocardial ischemia or infarction. When compared to prior EKG from 2014, no significant changes are seen. Impression: Sinus bradycardia with nonspecific ST segments. Discharge - Discharge Clinical Impression: Viral gastroenteritis Benign positional vertigo Qualifiers: Laterality: unspecified laterality Qualified Code(s): H81.10 - Benign paroxysmal vertigo, unspecified ear Condition: Stable Disposition: HOME, SELF-CARE Instructions: Antinausea Medication ([facility]), Gastroenteritis (adult) ([facility]) Additional Instructions: Return to the Emergency Department without delay if any worse. HOME CARE INSTRUCTIONS & INFORMATION: Thank you for choosing us for your medica l needs. We hope you're satisfied with the care you received. After you leave, you must properly care for your problem and, at the same time, observe its progress. Any condition can change. Some illnesses can change rapidly over hours or days. If your condition worsens, return to the Emergency Department or see your physician promptly. ABOUT YOUR X-RAYS AND EKG'S: If you had an EKG or X-rays taken, they have been read by the Emergency Physician. The X-rays and EKG's will also be read by a Radiologist or Stripper [employer] Opaquer Apprentice within 24 hours. If discrepancies are noted, you will be notified by telephone. Please be certain the ED has a correct telephone number & address where you can be reached. Also, realize that some fractures or abnormalities do not show up on initial X-rays. If your symptoms continue, see your physician. ABOUT YOUR LABORATORY TEST: If you had laboratory tests, the results have been reviewed by the Emergency Physician. Some test results (for example cultures) may not be available for several days. You will be contacted if any test result shows you need additional treatment. Please be certain the ED has a correct telephone number and address where you can be reached. ABOUT YOUR MEDICATIONS: You will receive instructions on how to take your medicine on the prescription label you receive. Additional information may be provided by the Pharmacy. If you have questions afterwards, call the ED for clarification or further instructions. Some prescribed medications may cause drowsiness. Do not perform tasks such as driving a car or operating machinery without consulting your Pharmacist. If you feel you need a refill of pain medication, your condition will need re-evaluation. Please do not call for a refill of any medication. ABOUT YOUR SIGNATURE: Signature of this document acknowledges to followin. Understanding that you received emergency treatment and that you may be released before al medical problems are known or treated. Please be certain the ED has a correct phone number & address where you can be reached. 2. Acknowledgement that you will arrange for follow-up care as recommended. 3. Authorization for the Emergency Physician to provide information to your follow-up Physician in order to maximize your care. AT ANY TIME, IF YOUR SYMPTOMS CHANGE SIGNIFICANTLY OR WORSEN OR YOU DEVELOP NEW SYMPTOMS, RETURN TO THE EMERGENCY DEPARTMENT IMMEDIATELY FOR RE-EVALUATION. OUR GOAL IS TO PROVIDE EXCELLENT MEDICAL CARE! WE HOPE THAT WE HAVE MET YOUR EXPECTATIONS DURING YOUR EMERGENCY DEPARTMENT VISIT AND THAT YOU FEEL YOU HAVE RECEIVED EXCELLENT CARE! Vertigo You have experienced an episode of vertigo -- a whirling dizziness which may be accompanied by nausea and vomiting or staggering. Vertigo is often caused by an irritation of the inner ear, in which case it is called labyrinthitis. It can also be a symptom of a degenerating inner ear, nerve damage, or brain injury. Your physician has evaluated you to determine whether any further testing is necessary. Vertigo is often treated with dramamine or meclizine. These medications are helpful, but stronger medication may be needed if you are vomiting. Rest in bed. You should not drive or operate machinery until completely better. It may take one to three weeks for recovery. If there are new symptoms, such as decreased hearing or vision, severe headache, weakness or faintness, or confusion, call the physician. Prescriptions: Ondansetron [Zofran Odt 4 mg Tablet] 8 mg PO Q8HP PRN #16 tab.rapdis PRN Reason: NAUSEA AND VOMITING Meclizine HCl [Antivert 25 mg Tablet] 25 mg PO TID PRN #21 tablet PRN Reason: Referrals: RISHABH GREWAL PA-C [Primary Care Provider] - 02/18/20
[2020-02-16 21:20] LABS: ABSOLUTE LYMPHOCYTES (AUTO) 1.1 10^3/uL (0.5-4.7); ABSOLUTE MONOCYTES (AUTO) 0.4 10^3/uL (0.1-1.4); ABSOLUTE NEUT (AUTO) 6.3 10^3/uL (1.7-8.2); BASOPHILS % (AUTO) 0.4 % (0-2); EOSINOPHILS % (AUTO) 0.6 % (0-6); HEMATOCRIT 35.4 % (36.0-47.0); HEMOGLOBIN 12.7 g/dL (12.0-15.5); LYMPHOCYTES % (AUTO) 14.1 % (13-45); MEAN CORPUSCULAR HEMOGLOBIN 33.7 pg (27.0-33.4); MEAN CORPUSCULAR HGB CONC 35.8 g/dL (32.0-36.0); MEAN CORPUSCULAR VOLUME 94 fl (80-97); MONOCYTES % (AUTO) 5.1 % (3-13); PLATELET COUNT 130 10^3/uL (150-450); RED BLOOD COUNT 3.76 10^6/uL (3.72-5.28); SEGMENTED NEUTROPHILS % (AUTO) 79.8 % (42-78); TOTAL CELLS COUNTED % (AUTO) 100 %; WHITE BLOOD COUNT 7.9 10^3/uL (4.0-10.5)
[2020-02-16 21:25] LABS: ALBUMIN 4.6 g/dL (3.5-5.0); ALKALINE PHOSPHATASE 82 U/L (38-126); ANION GAP 11 (5-19); ASPARTATE AMINO TRANSFERASE 33 U/L (14-36); BILIRUBIN,DIRECT 0.1 mg/dL (0.0-0.4); BILIRUBIN,TOTAL 0.4 mg/dL (0.2-1.3); BLOOD UREA NITROGEN 17 mg/dL (7-20); CARBON DIOXIDE 21 mmol/L (22-30); CHLORIDE 107 mmol/L (98-107); GLUCOSE 122 mg/dL (75-110); POTASSIUM 3.8 mmol/L (3.6-5.0); TOTAL PROTEIN 7.3 g/dL (6.3-8.2)
--- NOTE | 2020-02-16 22:05 | RADIOLOGY REPORT (SQ) ---
CHEST X-RAY 1 VIEW on 02/16/2020 at 9:19 PM CLINICAL INDICATION: Insecticide exposure COMPARISON: 01/25/2016 FINDINGS: The lungs are clear. Cardiac, hilar and mediastinal contours are within normal limits. Pulmonary vascularity is within normal limits. No bony abnormality is noted. IMPRESSION: No active disease.
[2020-02-17] MEDS ORDERED: ONDANSETRON HCL INJ/PF 4 MG/2 ML SDV IV ONE (00:11)
[2020-02-17] MEDS ORDERED: HYDROMORPHONE HCL INJ/PF 2 MG/ML AMPULE IV ONE (00:14)
[2020-02-17] MEDS ORDERED: NORMAL SALINE 1000 ML 1,000 ML IV ONE (01:13)
[2020-02-17] MEDS ORDERED: HALOPERIDOL LACTATE INJ 5 MG/1 ML VIAL IM ONE (01:13)
[2020-02-17 02:18] VITALS: BP 92/48
--- NOTE | 2020-02-17 02:51 | RADIOLOGY REPORT (SQ) ---
CT abdomen and pelvis with contrast on 02/17/2020 at 2:12 AM CLINICAL INDICATION: Periumbilical abdominal pain TECHNIQUE: Multiple axial images are obtained throughout the abdomen and pelvis following the administration of IV contrast, 79 mL of Omnipaque 350contrast was administered intravenously without complication. This exam was performed according to our departmental dose-optimization program, which includes automated exposure control, adjustment of the mA and/or kV according to patient size and/or use of iterative reconstruction technique. Total DLP is 497.78 mGy*cm. COMPARISON: 12/17/2013 FINDINGS: Abdomen: There is mild linear atelectasis or scarring in the right lung base. The lung bases are otherwise clear. Gallbladder is mildly distended, consider ultrasound follow-up. Solid abdominal organs are otherwise unremarkable. There is no abdominal adenopathy. There is no free fluid or free air within the abdomen. Increased stool is noted throughout the colon suggesting constipation. The abdominal portion of the GI tract is otherwise unremarkable. Pelvis: No free fluid is noted in the pelvis. There is no pelvic adenopathy. The appendix is not definitely visualized. No pericecal inflammatory changes are noted to suggest appendicitis but cannot exclude appendicitis on this exam based on nonvisualization. Pelvic portion of the GI tract is otherwise unremarkable. No bony abnormality is noted. IMPRESSION: 1. Increased stool throughout the colon consistent with constipation. 2. Nonvisualization of the appendix therefore not completely excluding appendicitis although no definite pericecal inflammatory changes are noted. If there is high clinical concern for appendicitis consider short-term follow-up repeat exam with oral and IV contrast . 3. Distended gallbladder, if clinically indicated ultrasound could better evaluate.
[2020-02-17] MEDS ORDERED: ONDANSETRON ODT 4 MG TAB (6 TAB/ER DISP) PO PRN (03:09)
[2020-02-17] MEDS ORDERED: SCOPOLAMINE HYDROBROMIDE 1.5 MG PATCH.TD72 TD STA (03:49)
[2020-02-17] MEDS ORDERED: SCOPOLAMINE HYDROBROMIDE 1.5 MG PATCH.TD72 ONE (05:12)
--- NOTE | 2020-02-17 18:10 | EKG REPORT ---
SEVERITY:- NORMAL ECG - SINUS BRADYCARDIA : Confirmed by: Chong Carlson MD 17-Feb-2020 18:09:48
== END 2020-02-17 05:37 | disposition home or self-care (01) ==
LOC: ER 20:40
DX: A08.4 Viral intestinal infection, unspecified (principal); H81.10 Benign paroxysmal vertigo, unspecified ear; T60.0X1A Toxic effect of organophosphate and carbamate insecticides, accidental (unintentional), initial encounter; R11.2 Nausea with vomiting, unspecified; R19.7 Diarrhea, unspecified; R51.9 Headache, unspecified; R10.9 Unspecified abdominal pain; M79.7 Fibromyalgia; Y92.008 Other place in unspecified non-institutional (private) residence as the place of occurrence of the external cause; Z88.2 Allergy status to sulfonamides; Z88.8 Allergy status to other drugs, medicaments and biological substances
CPT/HCPCS: 93005; 96376 ×2; 99285; 96372; 96361 ×2; 96374; 96375 ×2; 36415; 85025; 80053; 71045; 74177; 93010; J1630; A9270 ×2; J1885; J1170; J2405 ×2; J7030 ×2

== ENCOUNTER → 2020-04-10 | Outpatient (CLI) | payer MEDICARE ==
--- NOTE | 2020-04-10 14:59 | ER RDC ASSESSMENT REPORT ---
Intake - In the Last 14 days Have you traveled outside [place]?: No Have you been in close contact with someone CONFIRMED: No Worked in Healthcare?: No - Symptoms Subjective Fever([place] feverish): No Chills: No Muscule Aches: No Runny Nose: Yes Sore Throat: Yes Cough (New or worsening chronic cough): Yes Shortness of breath: No Nausea or Vomiting: Yes Headache: Yes Abdominal Pain: No Diarrhea(3 or more loose stools in last 24 hours): No - Do you have any of the following Chronic lung disease: Asthma or emphysema or COPD: No Cystic Fibrosis: No Diabetes: No High Blood Pressure: No Cardiovascular Disease: No Chronic Kidney Disease: No Chronic Liver Disease: No Chronic blood disorder like Sickle Cell Disease: No Weak immune system due to disease or medication: No Neurologic condition that limits movement: No Developmental delay - Moderate to Severe: No Recent (within past 2 weeks) or current : No Morbid Obesity (>100 pounds over ideal weight): No Obesity Comment: Patient is 5 feet 5 inches weight 112 pounds Other Comment: Patient has a history of lupus - Objective Temperature: 98.0 F Pulse Rate: 65 Respiratory Rate: 18 Blood Pressure: 84/38 O2 Sat by Pulse Oximetry: 65 Objective: Given above, testing performed: If Testing Performed: Test Specimen Type Sent to General - General Information source: Patient Notes: Patient here at [facility] for Covid testing patient denies any known positive exposure to Covid that she is aware of patient states report having symptoms for over a week and a half including a runny nose cough congestion headache and nausea. Patient followed up with PCP Meghna orta and was treated with antibiotics for sinus infection. Patient is here to also be further tested for Covid out of abundance of caution. - Related Data Allergies/Adverse Reactions: diphenhydramine HCl [From Benadryl] Allergy (Severe, Verified 02/26/19 11:13) HEART RACING, RESTLESS LEG metoclopramide HCl [From Reglan] Allergy (Severe, Verified 02/26/19 11:13) HEART RACING, RESTLESS LEG prochlorperazine maleate [From Compazine] Allergy (Severe, Verified 02/26/19 11:13) HEART RACING, RESTLESS LEG promethazine HCl [From Phenergan] Allergy (Severe, Verified 02/26/19 11:13) HEART RACING RESTLESS LEG Sulfa (Sulfonamide Antibiotics) Allergy (Severe, Verified 02/26/19 11:13) Anaphylaxis tramadol Allergy (Severe, Verified 02/26/19 11:13) N/V/MIGRAINES doxycycline [Doxycycline] Allergy (Mild, Verified 02/26/19 11:13) upset stomach latex [Latex] Allergy (Mild, Verified 02/26/19 11:13) Pruritis oxycodone HCl [From Percocet] Allergy (Mild, Verified 02/26/19 11:13) upset stomach cefdinir [From Omnicef] Allergy (Verified 02/26/19 11:13) Past Medical History - General Information source: Patient - Social History Smoking Status: Never Smoker Family History: Arthritis, CAD, Hyperlipidemia, Hypertension, Malignancy - Past Medical History Cardiac Medical History: Denies: Hx Coronary Artery Disease, Hx Heart Attack, Hx Hypertension Pulmonary Medical History: Denies: Hx Asthma, Hx Bronchitis, Hx COPD - NODULES OF SCAR TISSUE IN LUNGS, Hx Pneumonia Neurological Medical History: Reports: Hx Migraine. Denies: Hx Cerebrovascular Accident, Hx Seizures Renal/ Medical History: Denies: Hx Peritoneal Dialysis Malignancy Medical History: Reports: Hx Skin Cancer GI Medical History: Reports: Hx Gastroesophageal Reflux Disease Musculoskeletal Medical History: Comment Only Hx Arthritis - FIBROMYALGIA, BURSITIS IN BOTH HIPS/KNEES, Reports Hx Fibromyalgia Psychiatric Medical History: Reports: Hx Depression Infectious Medical History: Reports: Hx MRSA Past Surgical History: Reports: Hx Gynecologic Surgery - ablation, Hx Oral Surgery, Hx Orthopedic Surgery - right knee, Hx Tonsillectomy. Denies: Hx Hysterectomy, Hx Pacemaker Physical Exam - General General appearance: Appears well, Alert In distress: None Notes: PHYSICAL EXAMINATION: GENERAL: Well-appearing and in no acute distress. HEAD: Atraumatic, normocephalic. EYES: sclera anicteric, conjunctiva are normal. ENT: nares patent. Moist mucous membranes. NECK: Normal range of motion, supple without lymphadenopathy LUNGS: CTAB and equal. No wheezes rales or rhonchi. Respirations even and unlabored lung sounds clear. HEART: Regular rate and rhythm without murmurs ABDOMEN: Soft, nontender, normal bowel sounds, no guarding. EXTREMITIES: Normal range of motion, no pitting edema. No cyanosis. NEUROLOGICAL: Cranial nerves grossly intact. Normal speech. Normal gait. PSYCH: Normal mood, normal affect. SKIN: Warm, Dry, normal turgor, no rashes or lesions noted Diagnostic Results Laboratory Results: Pending strep culture pending Covid testing results. Patient provided instr uctions regarding Covid to include: As a person under investigation for Covid 19, the [place] department of Health and Human Services, division of public health advises you to adhere to the following guidance until your test results are reported to you. If your test result is positive, you will receive additional information from your provider and your local health department at that time. Remain at home until you are cleared by the health provider or public health authorities. Keep a log of visitors to your home, notify any visitors to your home of your isolation status. If you plan to move to a new address or leave the county, notify the local health department in your County. Call your doctor or seek care if you have an urgent medical need. Before seeking medical care, call ahead to get instructions from the provider before arriving at the medical office clinic or hospital. Notify them that you are being tested for the virus that causes Covid 19 so that arrangements can be made, as necessary, to prevent transmission to others in the healthcare setting. Next, notify the local health department in your county. If a medical emergency arises and you need to call 911, inform the first responders that you are being tested for the virus that causes Covid 19. Next, notify the local health department in your [facility]. Patient Education/Counseling Counseling/Education: Patient presents with upper respiratory symptoms worrisome for possible Covid 19. Patient does not have emergency worring symptoms such as difficulty br eathing, shortness of breath, chest pain, pressure, confusion or cyanosis. Patient appears suitable for discharge. Patient instructed to follow-up with her PCP Meghna anguiano To ED for persistent or worsening symptoms. Patient's vital signs are stable and patient is nontoxic in appearance. Good return precautions have been discussed with patient, patient verbalized understanding and is agreeable with discharge plan of care at this time. RDC Discharge - Discharge Clinical Impression: Encounter for screening laboratory testing for COVID-19 virus Upper respiratory infection Qualifiers: URI type: unspecified URI Qualified Code(s): J06.9 - Acute upper respiratory infection, unspecified Condition: Stable Disposition: Home; Selfcare
[2020-04-10 15:13] VITALS: BP 84/38
[2020-04-10 15:50] LABS: A TYPE INFLUENZA AG NEGATIVE (NEGATIVE)
[2020-04-10 15:51] LABS: B INFLUENZA AG NEGATIVE (NEGATIVE)
== END ==
LOC: RDC 13:37
PROVIDERS: ATTEND Nurse Practitioner Family
DX: J06.9 Acute upper respiratory infection, unspecified (principal); Z20.828 Contact with and (suspected) exposure to other viral communicable diseases; R05 Cough; J02.9 Acute pharyngitis, unspecified; R09.89 Other specified symptoms and signs involving the circulatory and respiratory systems; R11.0 Nausea; R51.9 Headache, unspecified; M79.7 Fibromyalgia; M71.562 Other bursitis, not elsewhere classified, left knee; M71.561 Other bursitis, not elsewhere classified, right knee; M71.552 Other bursitis, not elsewhere classified, left hip; M71.551 Other bursitis, not elsewhere classified, right hip; K21.9 Gastro-esophageal reflux disease without esophagitis; Z85.828 Personal history of other malignant neoplasm of skin; Z88.1 Allergy status to other antibiotic agents; Z88.6 Allergy status to analgesic agent; Z88.8 Allergy status to other drugs, medicaments and biological substances; Z91.040 Latex allergy status; Z86.14 Personal history of Methicillin resistant Staphylococcus aureus infection
CPT/HCPCS: 87070; 87880; 87804; 99211; U0003; G0463; C9803; 87635